=== PATIENT | male | born 1980 | race Caucasian/White ===

== ENCOUNTER 2017-05-14 21:29 | Emergency (ER) | payer BC ==
[2017-05-14 21:42] VITALS: BP 140/87; PULSE 80; TEMP 98.2; BMI 25.0
[2017-05-14] MEDS ORDERED: CYCLOBENZAPRINE HCL 10 MG TABLET (FP) ONE (22:31)
[2017-05-14] MEDS ORDERED: KETOROLAC TROMETHAMINE 60 MG/2 ML VIAL ONE (22:31)
--- NOTE | 2017-05-14 22:36 | PDOC ---
History of Present Illness - General Chief Complaint: Pain Stated Complaint: PAIN Time Seen by Provider: 05/14/17 21:47 History Source: Patient Exam Limitations: No Limitations - History of Present Illness Initial Comments: 05/14/17 22:33 here with complaints of left-sided neck pain and spasm. last week struck his head coming up some stairs incurring an axial load type injury and since that time has had spasm to his left neck with some radiation down arm since that time. has had problem with his neck and his lower back in the past, has disc herniations in his lumbar spine from work-related issues Occurred: reports: just prior to arrival, this evening Pain Location: reports: back, neck Modifying Factors: improves with: None Associated Symptoms (Fall): denies symptoms Past History - Travel Traveled outside of the country in the last 30 days: No Close contact w/someone who was outside of country & ill: No - Past Medical History Allergies/Adverse Reactions: Allergies Allergy/AdvReac Type Severity Reaction Status Date / Time No Known Allergies Allergy Verified 05/14/17 21:41 Home Medications: Ambulatory Orders Cyclobenzaprine HCl [Flexeril 10 mg] 10 mg PO BID PRN #14 tablet 05/14/17 Ibuprofen 600 mg PO Q6H PRN #30 tablet 05/14/17 GI Disorders: Yes (GERD) Psychiatric Problems: Yes (anxiety) - Immunization History Immunization Up to Date: Yes - Psycho/Social/Smoking Cessation Hx Anxiety: No Suicidal Ideation: No Smoking Status: Yes Smoking History: Current every day smoker Have you smoked in the past 12 months: Yes Number of Cigarettes Smoked Daily: 10 Cigars Per Day: 15 Information on smoking cessation initiated: No 'Breaking Loose' booklet given: 10/08/15 Hx Alcohol Use: No Drug/Substance Use Hx: No Substance Use Type: Alcohol Trauma Specific PMHX - Complaint Specific PMHX Back Injury: Yes Neck Injury: Yes Review of Systems - Review of Systems Able to Perform ROS?: Yes Is the patient limited Grenadian proficient: Yes Constitutional: Yes: Symptoms Reported, See HPI, Loss of Appetite, Malaise HEENTM: Yes: Symptoms Reported Respiratory: Yes: Symptoms reported Musculoskeletal: Yes: Symptoms Reported, See HPI, 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 No: Symptoms Reported, Bruising All Other Systems: Reviewed and Negative *Physical Exam - Vital Signs Last Vital Signs Temp Pulse Resp BP Pulse Ox 98.2 F 80 18 140/87 99 05/14/17 21:39 05/14/17 21:39 05/14/17 21:39 05/14/17 21:39 05/14/17 21:39 - Physical Exam General Appearance: Yes: Nourished, Appropriately Dressed, Apparent Distress, Mild Distress HEENT: positive: MARVA, Normal ENT Inspection, TMs Normal, Pharynx Normal Neck: positive: Supple (but tender with range of motion moving towards left. Reproducing spasm to left sternocleidomastoid muscles. Has no true C-spine tenderness, no rashes or lesions, neurovascular intact to hands.). negative: Tender, Lymphadenopathy (R), Lymphadenopathy (L), Tender midline Respiratory/Chest: positive: Lungs Clear, Normal Breath Sounds Musculoskeletal: positive: Muscle Spasm (upper paravertebral spinous muscles, and upper trapezius muscles. Has palpable spasm and reproduce tenderness with deep palpation at insertion to left SCM) Extremity: positive: Normal Capillary Refill, Normal Inspection. 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, Fully Oriented, Alert, Normal Mood/ Affect, Normal Response, Motor Strength 5/5 Progress Note - Progress Note Progress Note: Cervical spasm, will treat with NSAIDs and cyclobenzaprine and patient will follow-up with PMD for further evaluation and treatment *DC/Admit/Observation/Transfer Diagnosis at time of Disposition: Cervical myofascial strain Qualifiers: Encounter type: initial encounter Qualified Code(s): S16.1XXA - Strain of muscle, fascia and tendon at neck level, initial encounter - Discharge Dispostion Disposition: HOME Condition at time of disposition: Stable Admit: No - Prescriptions Prescriptions: Cyclobenzaprine HCl [Flexeril 10 mg] 10 mg PO BID PRN #14 tablet PRN Reason: spasm Ibuprofen 600 mg PO Q6H PRN #30 tablet PRN Reason: Pain - Referrals Referrals: Vishnu Garner MD [Primary Care Provider] - - Patient Instructions Printed Discharge Instructions: DI for Cervical Muscle Strain Additional Instructions: Rest, no heavy lifting or exercise until pain is resolved Hot soaks to neck and low back as often as possible/hot showers or Jacuzzis No massage or therapy until spasm is gone Continue ibuprofen 2-200 mg tablets every 6 hours for the next 3 days then as needed for pain and swelling Cyclobenzaprine 1-10mg every 8 hours as needed for spasm If not significant improvement within 24 hours with medication and rest regime, followup with private physician for change in medications and /or therapy. - Post Discharge Activity Work/School Note: Back to Work
[2017-05-14] MEDS ORDERED: CYCLOBENZAPRINE HCL 10 MG TABLET (FP) PO ONE (22:41)
[2017-05-14] MEDS ORDERED: KETOROLAC TROMETHAMINE 60 MG/2 ML VIAL IM ONE (22:41)
== END 2017-05-14 22:43 | disposition home or self-care (01) ==
LOC: JERFT 21:29
PROC: 3E0233Z Introduction of Anti-inflammatory into Muscle, Percutaneous Approach (ICD-10-PCS; principal; 2017-05-14)
DX: S16.1XXA Strain of muscle, fascia and tendon at neck level, initial encounter (principal); K21.9 Gastro-esophageal reflux disease without esophagitis; F41.9 Anxiety disorder, unspecified; F17.210 Nicotine dependence, cigarettes, uncomplicated; W22.8XXA Striking against or struck by other objects, initial encounter; Y93.89 Activity, other specified; Y92.9 Unspecified place or not applicable
CPT/HCPCS: 99281-25

== ENCOUNTER 2017-06-05 17:08 | Emergency (ER) | payer BC ==
[2017-06-05 17:15] VITALS: BP 131/83; PULSE 93; TEMP 97.4; BMI 25.0
[2017-06-05] MEDS ORDERED: LORazepam 1 MG TABLET PO ONE (17:51)
--- NOTE | 2017-06-05 17:51 | PDOC ---
History of Present Illness - General Chief Complaint: Shortness of Breath Stated Complaint: EXPOSURE TO CHEMICALS Time Seen by Provider: 06/05/17 17:29 - History of Present Illness Initial Comments: 06/05/17 18:12 Patient is a 36 year old male with no PMH who presents with SOB and chest tightness. Patient reports cleaning a pool with chemicals as well as a house with lots of dust and began to have a sensation of irritation in his throat with associated SOB. He was concerned, began to have chest tightness, and decided to present to the ED. He denies any cough, fevers, chills, chest pain, abdominal pain, or changes with bowel movements or urination. Past History - Past Medical History Allergies/Adverse Reactions: Allergies Allergy/AdvReac Type Severity Reaction Status Date / Time No Known Allergies Allergy Verified 06/05/17 17:10 Home Medications: Ambulatory Orders Cyclobenzaprine HCl [Flexeril 10 mg] 10 mg PO BID PRN #14 tablet 05/14/17 Ibuprofen 600 mg PO Q6H PRN #30 tablet 05/14/17 GI Disorders: Yes (GERD) Psychiatric Problems: Yes (anxiety) - Immunization History Immunization Up to Date: Yes - Psycho/Social/Smoking Cessation Hx Anxiety: No Suicidal Ideation: No Smoking Status: Yes Smoking History: Current every day smoker Have you smoked in the past 12 months: Yes Number of Cigarettes Smoked Daily: 10 Cigars Per Day: 15 Information on smoking cessation initiated: No 'Breaking Loose' booklet given: 10/08/15 Hx Alcohol Use: No Drug/Substance Use Hx: No Substance Use Type: Alcohol Review of Systems - Review of Systems Constitutional: No: Chills, Fever HEENTM: Yes: Throat Pain. No: Nose Pain, Nose Congestion, Throat Swelling, Mouth Pain, Difficulty Swallowing, Mouth Swelling Respiratory: Yes: Shortness of Breath. No: Cough, Productive cough, Hemoptysis Cardiac (ROS): Yes: Chest Tightness. No: Chest Pain, Palpitations ABD/GI: No: Constipated, Diarrhea, Nausea, Vomiting : No: Dysuria Integumentary: No: Rash Neurological: No: Headache, Numbness, Tingling, Weakness *Physical Exam - Vital Signs Last Vital Signs Temp Pulse Resp BP Pulse Ox 97.4 F L 93 H 19 131/83 99 06/05/17 17:10 06/05/17 17:10 06/05/17 17:10 06/05/17 17:10 06/05/17 17:10 - Physical Exam Comments: 06/05/17 18:21 General Appearance: Nourished. No Apparent Distress HEENT: Pharynx Normal with No Pharyngeal Erythema, Tonsillar Exudate, Tonsillar Erythema, Nasal Congestion, Sinus Tenderness Neck: Trachea midline, Normal Thyroid, Supple. No Lymphadenopathy (R) Respiratory/Chest: Lungs Clear, Normal Breath Sounds. No Crackles, Rales, Rhonchi, Wheezing Cardiovascular: Regular Rhythm, Regular Rate. No Murmur, Gallop/S3, Gallop/S4 Gastrointestinal/Abdominal: Normal Bowel Sounds, Soft. No Guarding, Rebound, Tenderness Extremity: Normal Capillary Refill Integumentary: Normal Color, Dry, Warm Neurologic: Fully Oriented, Alert, Normal Mood/Affect, Normal Response Medical Decision Making - Medical Decision Making 06/05/17 18:22 Patient is a 36 year old male who presents with SOB following cleaning dust and a pool with chemicals. Given the patient's benign physical exam and history, it is likely the patient's symptoms are due to some mild irritation to his pharynx as well as anxiety. We will obtain a chest radiograph to evaluate for any pathology and treat his anxiety and provide reassurance. *DC/Admit/Observation/Transfer Diagnosis at time of Disposition: SOB (shortness of breath) - Discharge Dispostion Disposition: HOME Condition at time of disposition: Improved Admit: No - Referrals Referrals: Vishnu Garner MD [Primary Care Provider] - - Patient Instructions Printed Discharge Instructions: DI for Anxiety -- Adult Additional Instructions: Please return to the ER if you experience concerning or worsening symptoms. Please call to follow up with your primary care provider to discuss your ER visit. - Attestations Physician Attestion: 06/05/17 18:26 I, Dr. Alex Huynh, attest that this document has been prepared under my direction and personally reviewed by me in its entirety. I further attest, that it accurately reflects all work, treatment, procedures and medical decision -making performed by me.
[2017-06-05] MEDS ORDERED: LORazepam 0.5 MG TABLET ONE (17:59)
--- NOTE | 2017-06-06 10:02 | PDOC ---
Attending Attestation - Resident Resident Name: AminaAlex - ED Attending Attestation I have performed the following: I have examined & evaluated the patient, The case was reviewed & discussed with the resident, I agree w/resident's findings & plan, Exceptions are as noted - HPI HPI: 06/06/17 09:58 36 yo male exposed to pool cleaning chemicals... difficulty breathing transiently - Physicial Exam PE: 06/06/17 10:01 NAD, No wheezing or dyspnea - Medical Decision Making 06/06/17 10:02 I agree with the residents assessment and plan
== END 2017-06-05 19:41 | disposition home or self-care (01) ==
LOC: JER 17:08
DX: Z77.098 Contact with and (suspected) exposure to other hazardous, chiefly nonmedicinal, chemicals (principal); R06.02 Shortness of breath; F41.9 Anxiety disorder, unspecified
CPT/HCPCS: 71020-TC; 99283-25

== ENCOUNTER 2017-06-23 13:45 | Emergency (ER) | payer OTHER, BC ==
[2017-06-23 14:06] VITALS: BP 143/91; PULSE 93; TEMP 98.1; BMI 25.0
[2017-06-23] MEDS ORDERED: KETOROLAC TROMETHAMINE 30 MG/1 ML VIAL IM ONE (14:42)
[2017-06-23] MEDS ORDERED: KETOROLAC TROMETHAMINE 60 MG/2 ML VIAL ONE (14:44)
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
== END 2017-06-23 16:43 | disposition home or self-care (01) ==
LOC: FER 13:45
PROC: 3E0233Z Introduction of Anti-inflammatory into Muscle, Percutaneous Approach (ICD-10-PCS; principal; 2017-06-23)
DX: R52 Pain, unspecified (principal); V23.4XXA Motorcycle driver injured in collision with car, pick-up truck or van in traffic accident, initial encounter; Y93.89 Activity, other specified; Y92.410 Unspecified street and highway as the place of occurrence of the external cause
CPT/HCPCS: 71020-TC; 72125-TC; 73562-TC-LT; 99283-25

== ENCOUNTER 2017-07-07 16:15 | Emergency (ER) | payer OTHER ==
[2017-07-07 16:20] VITALS: BP 140/93; PULSE 88; TEMP 98; BMI 25.0
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
== END 2017-07-07 19:35 | disposition home or self-care (01) ==
LOC: FER 16:15
DX: S13.4XXA Sprain of ligaments of cervical spine, initial encounter (principal); W11.XXXA Fall on and from ladder, initial encounter; Y93.89 Activity, other specified; Y92.219 Unspecified school as the place of occurrence of the external cause; Y99.0 Civilian activity done for income or pay
CPT/HCPCS: 70450-TC; 71101-TC-RT; 72125-TC; 99282-25

== ENCOUNTER 2018-02-25 12:33 | Emergency (ER) | payer SELFPAY ==
[2018-02-25 12:45] VITALS: BP 113/66; PULSE 81; TEMP 97.6; BMI 25.8
[2018-02-25] MEDS ORDERED: ONDANSETRON 4 MG/2 ML VIAL IVPUSH ONE (14:13)
[2018-02-25] MEDS ORDERED: SODIUM CHLORIDE 1,000 ML IV STA (14:13)
--- NOTE | 2018-02-25 14:19 | PDOC ---
History of Present Illness - General History Source: Patient Exam Limitations: No Limitations - History of Present Illness Initial Comments: 02/25/18 18:01 The patient is a 37 year old female with history of anxiety, hiatal hernia, who presents to the ED complaining of 1 day of epigastric pain with nausea and malaise. The patient reports he has been "paryting in [place]" for the past several days, drinking "a 12 pack every day" for the last 4 days. Today, while at work, he states he was not feeling well and came to the ED. On evaluation, his symptoms are resolved. No fever or chills. No vomiting or diarrhea. No chest pain or shortness of breath. <Riddhi Goel - Last Filed: 02/25/18 18:01> <Gabrielle Michele - Last Filed: 02/25/18 18:56> - General Chief Complaint: Pain Stated Complaint: HEADACHES, NAUSEA Time Seen by Provider: 02/25/18 13:27 Past History <Riddhi Goel - Last Filed: 02/25/18 18:01> - Past Medical History COPD: No GI Disorders: Yes (GERD) Psychiatric Problems: Yes (anxiety) - Immunization History Immunization Up to Date: Yes - Suicide/Smoking/Psychosocial Hx Smoking Status: Yes Smoking History: Current every day smoker Have you smoked in the past 12 months: No Number of Cigarettes Smoked Daily: 4 Cigars Per Day: 15 Information on smoking cessation initiated: Yes 'Breaking Loose' booklet given: 07/07/17 Hx Alcohol Use: No Drug/Substance Use Hx: No Substance Use Type: Alcohol <Gabrielle Michele - Last Filed: 02/25/18 18:56> - Past Medical History Allergies/Adverse Reactions: Allergies Allergy/AdvReac Type Severity Reaction Status Date / Time No Known Allergies Allergy Verified 02/25/18 12:45 Home Medications: Ambulatory Orders Clonazepam [Klonopin] 1 mg PO DAILY 02/25/18 Pantoprazole Sodium [Protonix] 40 mg PO DAILY 02/25/18 Review of Systems - Review of Systems Able to Perform ROS?: Yes Comments:: 02/25/18 18:01 GENERAL/CONSTITUTIONAL: +Malaise. No fever or chills. HEAD, EYES, EARS, NOSE AND THROAT: No change in vision. No ear pain or discharge. No sore throat. GASTROINTESTINAL: +Epigastric pain. +Nausea. No vomiting, diarrhea or constipation. GENITOURINARY: No dysuria, frequency, or change in urination. CARDIOVASCULAR: No chest pain or shortness of breath. RESPIRATORY: No cough, wheezing, or hemoptysis. MUSCULOSKELETAL: No joint or muscle swelling or pain. No neck or back pain. SKIN: No rash NEUROLOGIC: No headache, vertigo, loss of consciousness, or change in strength/ sensation. ENDOCRINE: No increased thirst. No abnormal weight change. HEMATOLOGIC/LYMPHATIC: No anemia, easy bleeding, or history of blood clots. ALLERGIC/IMMUNOLOGIC: No hives or skin allergy. <Riddhi Goel - Last Filed: 02/25/18 18:01> *Physical Exam - Vital Signs Last Vital Signs Temp Pulse Resp BP Pulse Ox 97.6 F 81 16 113/66 100 02/25/18 12:43 02/25/18 12:43 02/25/18 12:43 02/25/18 12:43 02/25/18 12:43 - Physical Exam Comments: 02/25/18 18:01 GENERAL: Awake, alert, and fully oriented, in no acute distress HEAD: No signs of trauma EYES: PERRLA, EOMI, sclera anicteric, conjunctiva clear ENT: Auricles normal inspection, hearing grossly normal, nares patent, oropharynx clear without exudates. Moist mucosa NECK: Normal ROM, supple, no lymphadenopathy, JVD, or masses LUNGS: Breath sounds equal, clear to auscultation bilaterally. No wheezes, and no crackles HEART: Regular rate and rhythm, normal S1 and S2, no murmurs, rubs or gallops ABDOMEN: +Mild epigastric tenderness to palpation. Soft, normoactive bowel sounds. No guarding, no rebound. No masses EXTREMITIES: Normal range of motion, no edema. No clubbing or cyanosis. No cords, erythema, or tenderness BACK: No midline spinal tenderness in cervical/thoracic/lumbar region NEUROLOGICAL: Normal speech, cranial nerves intact, negative pronator drift, 5/ 5 strength in all 4 extremities, normal sensation to light touch in all 4 extremities, normal cerebellar exam, normal gait, normal reflexes and tone SKIN: Warm, Dry, normal turgor, no rashes or lesions noted. <Riddhi Goel - Last Filed: 02/25/18 18:01> - Vital Signs Last Vital Signs Temp Pulse Resp BP Pulse Ox 97.6 F 81 16 113/66 100 02/25/18 12:43 02/25/18 12:43 02/25/18 12:43 02/25/18 12:43 02/25/18 12:43 <RyneGabrielle - Last Filed: 02/25/18 18:56> ED Treatment Course - LABORATORY CBC & Chemistry Diagram: 02/25/18 14:40 02/25/18 14:40 - ADDITIONAL ORDERS Additional order review: Laboratory Results 02/25/18 14:40 Sodium 138 Potassium 4.1 Chloride 105 Carbon Dioxide 26 Anion Gap 7 L BUN 19 H Creatinine 1.2 Creat Clearance w eGFR > 60 Random Glucose 111 H Calcium 8.4 L Magnesium 1.9 Total Bilirubin 0.2 D AST 68 H D ALT 100 H D Alkaline Phosphatase 95 Troponin I < 0.02 Total Protein 7.4 Albumin 3.9 Lipase 170 02/25/18 14:40 RBC 4.51 MCV 97.7 H MCHC 35.4 RDW 13.2 MPV 9.8 Neutrophils % 67.4 Lymphocytes % 23.9 Monocytes % 7.0 Eosinophils % 1.0 Basophils % 0.7 - Medications Given in the ED: ED Medications Discontinued Medications Generic Name Dose Route Start Last Admin Trade Name Freq PRN Reason Stop Dose Admin Famotidine/Sodium Chloride 20 mg in 50 mls @ 100 mls/hr 02/25/18 14:30 14:53 Pepcid 20 Mg Premixed Ivpb - IVPB 02/25/18 14:59 100 mls/hr ONCE ONE Administration Sodium Chloride 1,000 mls @ 1,000 mls/hr 02/25/18 14:13 02/25/18 14:52 Normal Saline - IV 02/25/18 15:12 1,000 mls/hr ASDIR STA Administration Ondansetron HCl 4 mg 02/25/18 14:13 02/25/18 14:53 Zofran Injection IVPUSH 02/25/18 14:14 4 mg ONCE ONE Administration <Riddhi Goel - Last Filed: 02/25/18 18:01> - LABORATORY CBC & Chemistry Diagram: 02/25/18 14:40 02/25/18 14:40 - RADIOLOGY Radiology Studies Ordered: Category Date Time Status CHEST X-RAY PORTABLE* [RAD] Stat Radiology 02/25/18 14:13 Ordered <Gabrielle Michele - Last Filed: 02/25/18 18:56> Medical Decision Making - Medical Decision Making 02/25/18 14:17 37-year-old male with a history of a hiatal hernia presents emergency department with nausea, malaise, and epigastric pain since this morning after drinking a 12 pack daily for the last 4 days. Vitals unremarkable. Exam with mild epigastric tenderness to palpation. Differential includes pancreatitis versus gastritis versus GERD. Plan: -labs -cxr -ekg -IVF -zofran/pepcid -reassess 02/25/18 18:53 Pt reports mild improvement in pain, not up to eating but tolerating water/ juice. Labs remarkable for mild AST/ALT elevations, likely 2/2 etoh. Rpt abd exam with no ttp. Offered pt more pain medication and further evaluation, but he prefers to go home as he knows this is likely due to excessive etoh. Will DC patient but gave him return precautions if his sxs do not improve or get worse. Pt expresses understanding. He will also f/u with Dr. Wing (his GI) within 1 week. I discussed the physical exam findings, ancillary test results and final diagnoses with the patient. I answered all of the patient's questions. The patient was satisfied with the care received and felt comfortable with the discharge plan and treatment plan. The patient will call their primary care physician within 24 hours to arrange follow-up and will return to the Emergency Department with any new, persistent or worsening symptoms. <Gabrielle Michele - Last Filed: 02/25/18 18:56> *DC/Admit/Observation/Transfer - Attestations Scribe Attestion: 02/25/18 18:02 Documentation prepared by Riddhi Goel, acting as medical reviewer for Gabrielle Michele MD. <Riddhi Goel - Last Filed: 02/25/18 18:01> - Discharge Dispostion Admit: No - Attestations Physician Attestion: 02/25/18 18:56 I, Dr. Gabrielle Michele MD, attest that this document has been prepared under my direction and personally reviewed by me in its entirety. I further attest, that it accurately reflects all work, treatment, procedures and medical decision -making performed by me. <Gabrielle Michele - Last Filed: 02/25/18 18:56> Diagnosis at time of Disposition: Abdominal pain - Discharge Dispostion Disposition: HOME Condition at time of disposition: Stable - Referrals Referrals: Vishnu Garner MD [Primary Care Provider] - - Patient Instructions Printed Discharge Instructions: DI for Abdominal Pain-Adult Additional Instructions: Follow up with Dr. Wing and your primary doctor within 1 week. Take zofran as needed for nausea. Continue to take your home pantoprazole. Stay hydrated and drink plenty of fluids. Return to the emergency department if you have any new, worsening, or concerning symptoms.
[2018-02-25] MEDS ORDERED: FAMOTIDINE 20 MG/50 ML IVPB 20 MG/50 ML MG IVPB ONE ×2 (14:30→14:40)
[2018-02-25] MEDS ORDERED: ONDANSETRON 4 MG/2 ML VIAL ONE (14:40)
[2018-02-25 15:17] LABS: ALBUMIN 3.9 g/dl (3.4-5.0); ANION GAP 7 (8-16); BILIRUBIN,TOTAL 0.2 mg/dL (0.2-1.0); BLOOD UREA NITROGEN 19 mg/dL (7-18); CALCIUM 8.4 mg/dL (8.5-10.1); CHLORIDE 105 mmol/L (98-107); CO2 26 mmol/L (21-32); CREATININE 1.2 mg/dL (0.7-1.3); GLUCOSE,RANDOM 111 mg/dL (74-106); LIPASE 170 U/L (73-393); SGPT/ALT 100 U/L (12-78); SODIUM 138 mmol/L (136-145); TOT PROT 7.4 g/dl (6.4-8.2)
[2018-02-25 15:19] LABS: ALK PHOS 95 U/L (45-117)
[2018-02-25 15:22] LABS: MAGNESIUM 1.9 mg/dL (1.8-2.4); POTASSIUM 4.1 mmol/L (3.5-5.1); SGOT/AST 68 U/L (15-37)
[2018-02-25 16:47] LABS: BASO % 0.7 % (0-2.0); HEMATOCRIT 44.1 % (35.4-49); HEMOGLOBIN 15.6 GM/dL (11.7-16.9); LYMPH % 23.9 % (8-40); MCH 34.6 pg (25.7-33.7); MCHC 35.4 g/dl (32.0-35.9); MEAN CELL VOLUME 97.7 fl (80-96); MEAN PLT VOLUME 9.8 fl (7.5-11.1); NEUT % 67.4 % (42.8-82.8); PLATELET COUNT 185 K/MM3 (134-434); RBC 4.51 M/mm3 (4.00-5.60); RDW 13.2 % (11.9-15.9); WHITE BLOOD COUNT 7.4 K/mm3 (4.0-10.0)
== END 2018-02-25 19:03 | disposition home or self-care (01) ==
LOC: JER 12:33
PROC: 3E033GC Introduction of Other Therapeutic Substance into Peripheral Vein, Percutaneous Approach (ICD-10-PCS; principal; 2018-02-25)
PROC: 3E0337Z Introduction of Electrolytic and Water Balance Substance into Peripheral Vein, Percutaneous Approach (ICD-10-PCS; 2018-02-25)
DX: R10.13 Epigastric pain (principal)
CPT/HCPCS: 36415; 71045-TC-FY; 80053; 83690; 83735; 84484; 85025; 99282-25; J7030

== ENCOUNTER 2018-03-02 19:45 | Emergency (ER) | payer BC ==
[2018-03-02 19:54] VITALS: BP 147/102; PULSE 80; TEMP 98; BMI 27.7
[2018-03-02] MEDS ORDERED: PANTOPRAZOLE SODIUM 40 MG VIAL IVPUSH ONE (21:01)
[2018-03-02] MEDS ORDERED: SODIUM CHLORIDE 1,000 ML IV STA (21:01)
--- NOTE | 2018-03-02 21:03 | PDOC ---
History of Present Illness - General History Source: Patient Exam Limitations: No Limitations - History of Present Illness Initial Comments: 03/02/18 22:28 The patient is a 37 year old male with a significant PMH of GERD and anxiety who presents to the emergency department with epigastric pain and diarrhea for 3 days. The patient reports that he was recently incarcerated and released 3 days ago when he began to experience his epigastric pain and diarrhea. The patient reports that he has had about 5 episodes a day of constant runny diarrhea since friday. He reports that he has been hydrating, eating and drinking normally. The patient reports being noncompliant with his protonix medication because he thought it would interact with medications given to him while incarcerated. The patient denies any chest pain or shortness of breath. He denies any fever, chills, nausea, vomiting or constipation. The patient reports some associated dizziness. The patient denies any other complaints. Social history: drinks alcohol. <Eliu Sanderson - Last Filed: 03/02/18 22:28> <Temitope Maldonado - Last Filed: 03/05/18 00:18> - General Chief Complaint: Pain, Acute Stated Complaint: GENERALIZED BODY ACHES, FEVER Time Seen by Provider: 03/02/18 19:49 Past History <Eliu Sanderson - Last Filed: 03/02/18 22:28> - Past Medical History COPD: No GI Disorders: Yes (GERD) Psychiatric Problems: Yes (anxiety) - Immunization History Immunization Up to Date: Yes - Suicide/Smoking/Psychosocial Hx Smoking Status: Yes Smoking History: Current every day smoker Have you smoked in the past 12 months: Yes Number of Cigarettes Smoked Daily: 4 Cigars Per Day: 15 Information on smoking cessation initiated: Yes 'Breaking Loose' booklet given: 07/07/17 Hx Alcohol Use: Yes (5-6 BEERS DAILY) Drug/Substance Use Hx: No Substance Use Type: Alcohol <Temitope Maldonado - Last Filed: 03/05/18 00:18> - Past Medical History Allergies/Adverse Reactions: Allergies Allergy/AdvReac Type Severity Reaction Status Date / Time No Known Allergies Allergy Verified 03/02/18 19:47 Home Medications: Ambulatory Orders Clonazepam [Klonopin] 1 mg PO DAILY 02/25/18 Pantoprazole Sodium [Protonix] 40 mg PO DAILY 02/25/18 Pantoprazole Sodium [Protonix -] 40 mg PO DAILY #20 tablet.ec 03/02/18 Review of Systems - Review of Systems Able to Perform ROS?: Yes Comments:: 03/02/18 22:29 GENERAL/CONSTITUTIONAL: No fever or chills. No weakness. HEAD, EYES, EARS, NOSE AND THROAT: No change in vision. No ear pain or discharge. No sore throat. CARDIOVASCULAR: No chest pain or shortness of breath. RESPIRATORY: No cough, wheezing, or hemoptysis. GASTROINTESTINAL: (+)diarrhea, epigastric pain. No nausea, vomiting, or constipation. GENITOURINARY: No dysuria, frequency, or change in urination. MUSCULOSKELETAL: No joint or muscle swelling or pain. No neck or back pain. SKIN: No rash NEUROLOGIC: No headache, vertigo, loss of consciousness, or change in strength/ sensation. ENDOCRINE: No increased thirst. No abnormal weight change. HEMATOLOGIC/LYMPHATIC: No anemia, easy bleeding, or history of blood clots. ALLERGIC/IMMUNOLOGIC: No hives or skin allergy. <Eliu Sanderson - Last Filed: 03/02/18 22:28> *Physical Exam - Vital Signs Last Vital Signs Temp Pulse Resp BP Pulse Ox 98 F 80 16 147/102 100 03/02/18 19:49 03/02/18 19:49 03/02/18 19:49 03/02/18 19:49 03/02/18 19:49 - Physical Exam Comments: 03/02/18 22:29 GENERAL: Awake, alert, and fully oriented, in no acute distress HEAD: No signs of trauma EYES: PERRLA, EOMI, sclera anicteric, conjunctiva clear ENT: (+)dry mucous membranes. Auricles normal inspection, hearing grossly normal , nares patent, oropharynx clear without exudates. NECK: Normal ROM, supple, no lymphadenopathy, JVD, or masses LUNGS: Breath sounds equal, clear to auscultation bilaterally. No wheezes, and no crackles HEART: Regular rate and rhythm, normal S1 and S2, no murmurs, rubs or gallops ABDOMEN: (+)epigastric tenderness. Belly Soft, normoactive bowel sounds. No guarding, no rebound. No masses EXTREMITIES: Normal range of motion, no edema. No clubbing or cyanosis. No cords, erythema, or tenderness NEUROLOGICAL: Cranial nerves II through XII grossly intact. Normal speech, normal gait SKIN: Warm, Dry, normal turgor, no rashes or lesions noted. <Eliu Sanderson - Last Filed: 03/02/18 22:28> - Vital Signs Last Vital Signs Temp Pulse Resp BP Pulse Ox 98 F 80 16 147/102 100 03/02/18 19:49 03/02/18 19:49 03/02/18 19:49 03/02/18 19:49 03/02/18 19:49 <Temitope Maldonado - Last Filed: 03/05/18 00:18> ED Treatment Course - LABORATORY CBC & Chemistry Diagram: 03/02/18 21:05 03/02/18 21:05 - ADDITIONAL ORDERS Additional order review: Laboratory Results 03/02/18 21:05 Sodium 137 Potassium 3.8 Chloride 101 Carbon Dioxide 28 Anion Gap 8 BUN 20 H D Creatinine 1.1 Creat Clearance w eGFR > 60 Random Glucose 98 Calcium 8.8 Total Bilirubin 0.7 D AST 60 H D ALT 66 H D Alkaline Phosphatase 77 Total Protein 7.1 Albumin 4.1 Lipase 294 03/02/18 21:05 RBC 4.34 MCV 96.3 H MCHC 35.9 RDW 12.1 MPV 9.0 Neutrophils % 65.6 Lymphocytes % 25.0 D Monocytes % 7.1 Eosinophils % 1.7 Basophils % 0.6 - Medications Given in the ED: ED Medications Discontinued Medications Generic Name Dose Route Start Last Admin Trade Name Freq PRN Reason Stop Dose Admin Sodium Chloride 1,000 mls @ 1,000 mls/hr 03/02/18 21:01 03/02/18 21:11 Normal Saline - IV 03/02/18 22:00 1,000 mls/hr ASDIR STA Administration Pantoprazole Sodium 40 mg 03/02/18 21:01 03/02/18 21:17 Protonix Iv IVPUSH 03/02/18 21:02 40 mg ONCE ONE Administration <Eliu Sanderson - Last Filed: 03/02/18 22:28> - LABORATORY CBC & Chemistry Diagram: 03/02/18 21:05 03/02/18 21:05 <Temitope Maldonado - Last Filed: 03/05/18 00:18> Progress Note - Progress Note Progress Note: Documentation has been prepared under my direction and personally reviewed by me in its entirety. I attest that this documented accurately reflects all work, treatment, procedures and medical decision making performed by me. <Temitope Maldonado - Last Filed: 03/05/18 00:18> Medical Decision Making - Medical Decision Making As noted above, this 37-year-old man with a history of GERD, recently incarcerated presents with a few day history of diarrhea and epigastric pain. Patient states that he had not taken his Protonix during the time that he was incarcerated. Otherwise, he is no significant symptoms. Exam as noted. Patient given a liter normal saline/Protonix 40 mg IV. Laboratory evaluation is essentially normal without elevation of lipase or LFTs. He has minimal elevation of transaminases. Patient feels significantly better after IV hydration and Protonix IV. Patient will be discharged with instructions to continue his Protonix by mouth daily as previously prescribed. He should take Imodium after every loose bowel to 4 times a day. He should return to the ER if he has severe pain or persistent vomiting/fever Follow-up with his general doctor should be within the next 2-3 days <Temitope Maldonado - Last Filed: 03/05/18 00:18> *DC/Admit/Observation/Transfer <Eliu Sanderson - Last Filed: 03/02/18 22:28> <Temitope Maldonado - Last Filed: 03/05/18 00:18> Diagnosis at time of Disposition: Gastroenteritis and colitis, viral GERD (gastroesophageal reflux disease) Qualifiers: Esophagitis presence: with esophagitis Qualified Code(s): K21.0 - Gastro- esophageal reflux disease with esophagitis - Discharge Dispostion Disposition: HOME Condition at time of disposition: Stable - Prescriptions Prescriptions: Pantoprazole Sodium [Protonix -] 40 mg PO DAILY #20 tablet.ec - Patient Instructions Printed Discharge Instructions: DI for Gastroesophageal Reflux Disease (GERD), Smoking Cessation Additional Instructions: continue Protonix as prescribed Continue hydration as tolerated Return to ER if you have vomiting or worsening abdominal pain Follow-up with your general doctor within the next 2-3 days
[2018-03-02] MEDS ORDERED: PANTOPRAZOLE SODIUM 40 MG VIAL ONE (21:12)
[2018-03-02 21:25] LABS: BASO % 0.6 % (0-2.0); EOS % 1.7 % (0-4.5); MCH 34.6 pg (25.7-33.7); MCHC 35.9 g/dl (32.0-35.9); MEAN CELL VOLUME 96.3 fl (80-96); MONO % 7.1 % (3.8-10.2); NEUT % 65.6 % (42.8-82.8); PLATELET COUNT 146 K/MM3 (134-434); RBC 4.34 M/mm3 (4.00-5.60); RDW 12.1 % (11.9-15.9); WHITE BLOOD COUNT 6.5 K/mm3 (4.0-10.8)
[2018-03-02 21:36] LABS: ALBUMIN 4.1 g/dl (3.5-5.0); ALK PHOS 77 U/L (32-92); ANION GAP 8 (8-16); BILIRUBIN,TOTAL 0.7 mg/dl (0.2-1.0); BLOOD UREA NITROGEN 20 mg/dl (7-18); CALCIUM 8.8 mg/dl (8.4-10.2); CHLORIDE 101 mmol/L (98-107); CO2 28 mmol/L (22-28); CREATININE 1.1 mg/dl (0.6-1.3); GLUCOSE,RANDOM 98 mg/dl (74-106); POTASSIUM 3.8 mmol/L (3.5-5.1); SGOT/AST 60 U/L (10-42); SGPT/ALT 66 U/L (10-40); SODIUM 137 mmol/L (136-145); TOT PROT 7.1 g/dl (6.4-8.3)
[2018-03-02 22:02] LABS: HEMATOCRIT 39.8 % (35.4-49); HEMOGLOBIN 13.8 GM/dl (11.7-16.9)
[2018-03-02 22:26] LABS: LIPASE 294 U/L (73-393)
== END 2018-03-02 22:41 | disposition home or self-care (01) ==
LOC: FER 19:45
PROC: 3E0337Z Introduction of Electrolytic and Water Balance Substance into Peripheral Vein, Percutaneous Approach (ICD-10-PCS; principal; 2018-03-02)
PROC: 3E033GC Introduction of Other Therapeutic Substance into Peripheral Vein, Percutaneous Approach (ICD-10-PCS; 2018-03-02)
DX: K52.9 Noninfective gastroenteritis and colitis, unspecified (principal); K52.89 Other specified noninfective gastroenteritis and colitis; B97.89 Other viral agents as the cause of diseases classified elsewhere
CPT/HCPCS: 36415; 80053; 83690; 85025; 99281-25; J7030

== ENCOUNTER 2018-03-16 02:54 | Emergency (ER) | payer BC ==
--- NOTE | 2018-03-16 03:31 | PDOC ---
History of Present Illness - General Chief Complaint: Pain Stated Complaint: STOMACH PAIN Time Seen by Provider: 03/16/18 03:21 - History of Present Illness Initial Comments: 37 year old male with history of anxiety and GERD presenting with sudden onset epigastric burning tonight a few hours after laying down. States he ate some food at 20:00 and drank one alcoholic drink at 21:00 then went to bed and woke up at with sudden onset epigastric burning. He hasn't taken his pantoprazole for three days because "just because". Denies fevers, chills, vomiting, chest pain, SOB, headache, cough, or other sick symptoms. 03/16/18 03:45 Past History - Past Medical History Allergies/Adverse Reactions: Allergies Allergy/AdvReac Type Severity Reaction Status Date / Time No Known Allergies Allergy Verified 03/16/18 03:19 Home Medications: Ambulatory Orders Clonazepam [Klonopin] 1 mg PO DAILY 02/25/18 Pantoprazole Sodium [Protonix] 40 mg PO DAILY 02/25/18 Pantoprazole Sodium [Protonix -] 40 mg PO DAILY #20 tablet.ec 03/02/18 Sucralfate Oral Suspension [Carafate Oral Suspension -] 1 gm PO BID PRN #10 ml 03/16/18 COPD: No GI Disorders: Yes (GERD) Psychiatric Problems: Yes (anxiety) - Immunization History Immunization Up to Date: Yes - Suicide/Smoking/Psychosocial Hx Smoking Status: Yes Smoking History: Never smoked Have you smoked in the past 12 months: No Number of Cigarettes Smoked Daily: 4 Cigars Per Day: 15 Information on smoking cessation initiated: No 'Breaking Loose' booklet given: 07/07/17 Hx Alcohol Use: No Drug/Substance Use Hx: No Substance Use Type: Alcohol Review of Systems - Review of Systems Constitutional: No: Chills, Diaphoresis, Fever, Loss of Appetite HEENTM: No: Eye Pain, Blurred Vision, Nose Pain, Nose Congestion Respiratory: No: Shortness of Breath, Wheezing Cardiac (ROS): No: Edema, Irregular Heart Rate ABD/GI: Yes: Indigestion. No: Diarrhea, Nausea, Poor Appetite, Vomiting : No: Dysuria, Discharge, Frequency Integumentary: No: Lesions, Lumps, Pruritus, Rash Neurological: No: Headache, Numbness, Paresthesia, Weakness Psychiatric: Yes: Anxiety *Physical Exam - Vital Signs Last Vital Signs Temp Pulse Resp BP Pulse Ox 98.1 F 87 20 149/85 99 03/16/18 03:17 03/16/18 03:17 03/16/18 03:17 03/16/18 03:17 03/16/18 03:17 - Physical Exam General Appearance: Yes: Nourished, Appropriately Dressed. No: Apparent Distress HEENT: positive: EOMI, MARVA, Normal ENT Inspection, Normal Voice Neck: positive: Trachea midline, Normal Thyroid, Supple. negative: Tender, Rigid Respiratory/Chest: positive: Lungs Clear, Normal Breath Sounds. negative: Chest Tender, Respiratory Distress, Accessory Muscle Use, Labored Respiration Cardiovascular: positive: Regular Rhythm, Regular Rate Gastrointestinal/Abdominal: positive: Normal Bowel Sounds, Flat, Soft. negative : Tender Musculoskeletal: positive: Normal Inspection Extremity: positive: Normal Capillary Refill. negative: Normal Inspection, Tender Integumentary: positive: Normal Color, Dry, Warm Neurologic: positive: Fully Oriented, Alert, Normal Mood/Affect, Normal Response , Motor Strength 03/14 ED Treatment Course - LABORATORY CBC & Chemistry Diagram: 03/16/18 04:00 03/16/18 04:00 Medical Decision Making - Medical Decision Making 37 year old male with GERD presenting with epigastric pain in the setting of medication non-compliance. Pain improved here with Pepcid and suscralfate. Lipase slightly elevated but patient does not have pain with food ingestion. Will discharge home with protonix use insttructions, sucralfate prescription, and follow up at his GI appointment this week. 03/16/18 05:04 *DC/Admit/Observation/Transfer Diagnosis at time of Disposition: Epigastric pain - Discharge Dispostion Disposition: HOME Condition at time of disposition: Improved Admit: No - Prescriptions Prescriptions: Sucralfate Oral Suspension [Carafate Oral Suspension -] 1 gm PO BID PRN #10 ml PRN Reason: abdominal pain - Referrals Referrals: Dante Copeland DO [Staff Physician] - - Patient Instructions Printed Discharge Instructions: DI for Acute Abdomen Additional Instructions: Please stop drinking alcohol. Your labs were mostly normal but show that you are using alcohol too much. Please see your GI doctor this week for your endoscopy and to discuss your lab results here. Please return to the ED if you have new or worsening symptoms. - Post Discharge Activity
[2018-03-16 03:37] VITALS: BP 149/85; PULSE 87; TEMP 98.1; BMI 25.8
[2018-03-16] MEDS ORDERED: SUCRALFATE 1 GM TABLET (FP) PO STA (03:43)
[2018-03-16] MEDS ORDERED: RANITIDINE HCL 150 MG TABLET (FP) PO ONE (03:43)
[2018-03-16] MEDS ORDERED: MAG HYDROX/AL HYDROX/SIMETH 30 ML UNIT-DOSE CUP PO ONE (03:43)
[2018-03-16] MEDS ORDERED: PANTOPRAZOLE SODIUM 40 MG VIAL IVPUSH ONE (03:48)
[2018-03-16 04:06] LABS: BASO % 0.8 % (0-2.0); EOS % 3.8 % (0-4.5); HEMATOCRIT 41.2 % (35.4-49); HEMOGLOBIN 14.8 GM/dL (11.7-16.9); LYMPH % 26.8 % (8-40); MCH 35.3 pg (25.7-33.7); MCHC 35.9 g/dl (32.0-35.9); MEAN CELL VOLUME 98.5 fl (80-96); MEAN PLT VOLUME 9.5 fl (7.5-11.1); MONO % 8.9 % (3.8-10.2); NEUT % 59.7 % (42.8-82.8); PLATELET COUNT 175 K/MM3 (134-434); RBC 4.18 M/mm3 (4.00-5.60); RDW 13.7 % (11.9-15.9); WHITE BLOOD COUNT 6.1 K/mm3 (4.0-10.0)
[2018-03-16] MEDS ORDERED: MAG HYDROX/AL HYDROX/SIMETH 30 ML UNIT-DOSE CUP ONE (04:08)
[2018-03-16] MEDS ORDERED: PANTOPRAZOLE SODIUM 40 MG/100 ML BAG IVPB ONE (04:08)
[2018-03-16] MEDS ORDERED: SUCRALFATE 1 GM TABLET (FP) ONE (04:08)
[2018-03-16 04:36] LABS: ALBUMIN 3.9 g/dl (3.4-5.0); ANION GAP 12 (8-16); BILIRUBIN,TOTAL 0.3 mg/dL (0.2-1.0); BLOOD UREA NITROGEN 13 mg/dL (7-18); CHLORIDE 106 mmol/L (98-107); CO2 25 mmol/L (21-32); GLUCOSE,RANDOM 96 mg/dL (74-106); POTASSIUM 3.5 mmol/L (3.5-5.1); SGOT/AST 98 U/L (15-37); SGPT/ALT 137 U/L (12-78); SODIUM 143 mmol/L (136-145); TOT PROT 7.4 g/dl (6.4-8.2)
[2018-03-16 04:38] LABS: ALK PHOS 84 U/L (45-117)
--- NOTE | 2018-03-16 04:42 | PDOC ---
Attending Attestation - Resident Resident Name: Douglas Cruz - ED Attending Attestation I have performed the following: I have examined & evaluated the patient, The case was reviewed & discussed with the resident, I agree w/resident's findings & plan - HPI HPI: 03/16/18 04:41 Pt comes with epigastric pain - Physicial Exam PE: 03/16/18 04:41 Agree with resident exam - Medical Decision Making 03/16/18 04:42 Lipase is elevated. LFTs also elevated and higher than usual. 03/16/18 06:30 Pt used to be an alcoholic and now drinks occasionally. He was advised to stop drinking and he doesn't want to go to detox. Pt will follow with GI.
--- NOTE | 2018-03-16 10:40 | EKG ---
Test Reason : Blood Pressure : / mmHG Vent. Rate : 067 BPM Atrial Rate : 067 BPM P-R Int : 176 ms QRS Dur : 112 ms QT Int : 394 ms P-R-T Axes : 058 078 047 degrees QTc Int : 416 ms NORMAL SINUS RHYTHM NONSPECIFIC ST ABNORMALITY ABNORMAL ECG WHEN COMPARED WITH ECG OF 25-JAN-2016 04:10, NO SIGNIFICANT CHANGE WAS FOUND Confirmed by MONET RIDLEY MD ([id number]) on 03/16/2018 10:40:18 AM Referred By: Confirmed By:MONET RIDLEY MD
== END 2018-03-16 05:20 | disposition home or self-care (01) ==
LOC: JER 02:54
PROC: 3E033GC Introduction of Other Therapeutic Substance into Peripheral Vein, Percutaneous Approach (ICD-10-PCS; principal; 2018-03-16)
DX: K21.9 Gastro-esophageal reflux disease without esophagitis (principal); Z91.14 Patient's other noncompliance with medication regimen; F41.9 Anxiety disorder, unspecified
CPT/HCPCS: 36415; 80053; 82550; 82553; 83690; 84484; 85025; 93005; 93010; 99281-25

== ENCOUNTER → 2018-03-31 | Day surgery (SDC) | payer BC ==
[2018-03-30 14:44] VITALS: BMI 25.0
[2018-03-31 11:30] VITALS: TEMP 97.8
[2018-03-31 12:19] VITALS: BP 118/79; PULSE 64
--- NOTE | 2018-04-01 14:09 | PATH ---
Surgical Pathology Report Patient Name: ALEKSEY DOUGLAS [facility]. Rec. #: [id number] /Age/Gender: 1980 (Age: 37) / M Account: [id number] Location: [facility]-ENDOSCOPY Taken: 03/31/2018 Received: 03/31/2018 Reported: 04/01/2018 Physicians: Gio Copeland D.O. Specimen(s) Received A: BX DUODENUM B: BX ANTRUM EROSION C: BX ANTRUM BODY D: BX DISTAL ESOPHAGUS Clinical History GERD Postoperative diagnosis: Hiatal hernia, esophagitis, gastritis, duodenitis Final Diagnosis A. DUODENUM, BIOPSY: DUODENAL MUCOSA WITH MILD CHRONIC DUODENITIS. B. ANTRUM EROSION, BIOPSY: GASTRIC MUCOSA WITH ACTIVE CHRONIC GASTRITIS AND REGENERATIVE CHANGE. IMMUNOSTAIN IS NEGATIVE FOR H. PYLORI ORGANISMS. C. ANTRUM/BODY, BIOPSY: GASTRIC MUCOSA WITH NO DIAGNOSTIC ABNORMALITIES. IMMUNOSTAIN IS NEGATIVE FOR H. PYLORI ORGANISMS. D. ESOPHAGUS, DISTAL, BIOPSY: ESOPHAGEAL (SQUAMOUS) MUCOSA SHOWING FEATURES SUGGESTIVE OF REFLUX ESOPHAGITIS. Electronically Signed Eliazar Eid M.D. Gross Description A. Received in formalin, labeled "biopsy second portion of duodenum" are 3 blair, irregular portions of soft tissue averaging 0.2 cm. in greatest dimension. The specimens are submitted in toto in one cassette. B. Received in formalin, labeled "biopsy antral erosion" are 3 blair, irregular portions of soft tissue ranging from 0.2-0.3 cm. in greatest dimension. The specimens are submitted in toto in one cassette. C. Received in formalin, labeled "biopsy antrum/body" are 3 blair, irregular portions of soft tissue ranging from 0.2-0.5 cm. in greatest dimension. The specimens are submitted in toto in one cassette. D. Received in formalin, labeled "biopsy distal esophagus" are 3 blair, irregular portions of soft tissue ranging from 0.3-0.4 cm. in greatest dimension. The specimens are submitted in toto in one cassette. 03/31/201803/31/2018
== END | disposition home or self-care (01) ==
LOC: JASU-ENDO 10:18
PROVIDERS: ATTEND Internal Medicine Gastroenterology
PROC: 0DB68ZX Excision of Stomach, Via Natural or Artificial Opening Endoscopic, Diagnostic (ICD-10-PCS; 2018-03-31)
PROC: 0DB38ZX Excision of Lower Esophagus, Via Natural or Artificial Opening Endoscopic, Diagnostic (ICD-10-PCS; 2018-03-31)
PROC: 0DB98ZX Excision of Duodenum, Via Natural or Artificial Opening Endoscopic, Diagnostic (ICD-10-PCS; principal; 2018-03-31 11:15)
DX: Z87.19 Personal history of other diseases of the digestive system (principal); K29.80 Duodenitis without bleeding; K29.50 Unspecified chronic gastritis without bleeding; K44.9 Diaphragmatic hernia without obstruction or gangrene
CPT/HCPCS: 36415; 81256; 82728; 82941; 88305-TC; 88342-TC

== ENCOUNTER 2018-09-28 16:56 | Emergency (ER) | payer BC ==
--- NOTE | 2018-09-28 17:30 | PDOC ---
History of Present Illness - General History Source: Patient Exam Limitations: No Limitations - History of Present Illness Initial Comments: 09/28/18 18:33 The patient is a 37 year old male, with a significant past medical history of pancreatic pseudocyst and alcoholic pancreatitis (former alcoholic), who presents to the emergency department with, right sided rib and thoracic back pain. As per patient, he was on a step stool working on his house when he fell injuring his right lower ribs and back. Patient notes his pain to worsen when sitting up. He denies any recent chest pain or shortness of breath. He denies any recent fevers, chills, headache or dizziness. He denies any recent nausea, vomit, diarrhea or constipation. He denies any recent dysuria, frequency, urgency or hematuria. Allergies: NKDA Social History: Former alcoholic. <Deep Cohen - Last Filed: 09/28/18 18:33> <Keysha Stroud - Last Filed: 09/28/18 18:58> - General Chief Complaint: Injury Stated Complaint: FELL ON LEFT SIDE Time Seen by Provider: 09/28/18 17:30 Past History <Deep Cohen - Last Filed: 09/28/18 18:33> - Past Medical History Anemia: No Asthma: No Cancer: No Cardiac Disorders: No CVA: No COPD: No CHF: No Dementia: No Diabetes: No GI Disorders: Yes (GERD;HIATAL HERNIA) Disorders: No HTN: No Hypercholesterolemia: No Liver Disease: Yes (ALCOHOLIC FATTY LIVER) Psychiatric Problems: Yes (anxiety) Seizures: No Thyroid Disease: No - Surgical History Orthopedic Surgery: Yes (RIGHT ELBOW SURGERY) - Immunization History Immunization Up to Date: Yes - Suicide/Smoking/Psychosocial Hx Smoking Status: Yes Smoking History: Current some day smoker Have you smoked in the past 12 months: Yes Number of Cigarettes Smoked Daily: 15 Cigars Per Day: 15 'Breaking Loose' booklet given: 05/11/18 Hx Alcohol Use: Yes Drug/Substance Use Hx: No Substance Use Type: Alcohol Hx Substance Use Treatment: No <Keysha Stroud - Last Filed: 09/28/18 18:58> - Past Medical History Allergies/Adverse Reactions: Allergies Allergy/AdvReac Type Severity Reaction Status Date / Time No Known Allergies Allergy Verified 09/28/18 16:57 Home Medications: Ambulatory Orders Ibuprofen [Motrin -] 600 mg PO TID PRN #15 tablet 09/28/18 Review of Systems - Review of Systems Able to Perform ROS?: Yes Comments:: 09/28/18 18:34 GENERAL/CONSTITUTIONAL: No fever or chills. No weakness. HEAD, EYES, EARS, NOSE AND THROAT: No change in vision. No ear pain or discharge. No sore throat. GASTROINTESTINAL: No nausea, vomiting, diarrhea or constipation. GENITOURINARY: No dysuria, frequency, or change in urination. CARDIOVASCULAR: No chest pain or shortness of breath. RESPIRATORY: No cough, wheezing, or hemoptysis. +MUSCULOSKELETAL: Right rib pain and thoracic back pain. No neck pain. SKIN: No rash NEUROLOGIC: No headache, vertigo, loss of consciousness, or change in strength/ sensation. ENDOCRINE: No increased thirst. No abnormal weight change. HEMATOLOGIC/LYMPHATIC: No anemia, easy bleeding, or history of blood clots. ALLERGIC/IMMUNOLOGIC: No hives or skin allergy. All Other Systems: Reviewed and Negative <Deep Cohen - Last Filed: 09/28/18 18:33> *Physical Exam - Vital Signs Last Vital Signs Temp Pulse Resp BP Pulse Ox 98.1 F 75 20 129/79 100 09/28/18 16:56 09/28/18 16:56 09/28/18 16:56 09/28/18 16:56 09/28/18 16:56 - Physical Exam Comments: 09/28/18 18:34 Constitutional: Awake, alert, oriented. No acute distress. Head: Normocephalic. Atraumatic Eyes: PERRL. EOMI. Conjunctivae are not pale. ENT: Mucous membranes are moist and intact. Posterior pharynx without exudates or erythema. Uvula midline. Neck: Supple. Full ROM. No lymphadenopathy. Cardiovascular: Regular rate. Regular rhythm. S1, S2 regular. Distal pulses are 2+ and symmetric. Pulmonary/Chest: No evidence of respiratory distress. Clear to auscultation bilaterally No wheezing, rales or rhonchi. +Abdominal: Right lower rib pain without step off or deformities. Soft and non- distended. No rebound, guarding or rigidity. No organomegaly. No palpable masses. Good bowel sounds. +Back: Mid thoracic back tenderness. No midline tenderness. No CVA tenderness. Musculoskeletal: No edema. No cyanosis. No clubbing. Full range of motion in all extremities. No calf tenderness. Radial/pedal pulses are intact and 2+ bilaterally Skin: Skin is warm and dry. No petechiae. No purpura. Neurological: Alert and oriented to person, place, and time. Cranial nerves II -XII are grossly intact. Normal speech. Strength is grossly symmetric. No sensory deficits. Psychiatric: Good eye contact. Normal interaction, affect and behavior. <Deep Cohen - Last Filed: 09/28/18 18:33> ED Treatment Course - Medications Given in the ED: ED Medications Discontinued Medications Generic Name Dose Route Start Last Admin Trade Name Danny PRN Reason Stop Dose Admin Ibuprofen 600 mg 09/28/18 17:39 09/28/18 18:08 Motrin - PO 09/28/18 17:40 600 mg ONCE ONE Administration Lidocaine 1 patch 09/28/18 17:39 09/28/18 18:08 Lidoderm Patch - TP 09/28/18 17:40 1 patch ONCE ONE Administration <Deep Cohen - Last Filed: 09/28/18 18:33> Medical Decision Making - Medical Decision Making 09/28/18 17:41 a/p: 37yo male s/p mechanical fall off a step stool and landing on his back -c/o b/l lower rib pain - worse with inspiration and movement -ttp over lower ribs, no deformity palpated -lungs cta -will obtain xray rib series b/l -ua to eval for hematuria given lower rib pain -pain control, incentive spirometry -will monitor and reassess -pt is nontoxic in appearance 09/28/18 18:44 ua negative 09/28/18 18:54 xrays reviewed - no acute fx seen, poss old fx to the right pt states he has broken a rib in the past will give incentive spirometry pain control has appt with his floral specialist/orthopedist for friday also follows with dr. valentin headley for d/c to home <Keysha Stroud - Last Filed: 09/28/18 18:58> *DC/Admit/Observation/Transfer - Attestations Scribe Attestion: 09/28/18 18:34 Documentation prepared by Deep Cohen, acting as medical coder for Keysha Stroud DO. <Deep Cohen - Last Filed: 09/28/18 18:33> - Discharge Dispostion Decision to Admit order: No - Attestations Physician Attestion: 09/28/18 18:58 I, Dr. Keysha Stroud DO, attest that this document has been prepared under my direction and personally reviewed by me in its entirety. I further attest, that it accurately reflects all work, treatment, procedures and medical decision -making performed by me. <Keysha Stroud - Last Filed: 09/28/18 18:58> Diagnosis at time of Disposition: Rib contusion - Discharge Dispostion Disposition: HOME Condition at time of disposition: Stable - Prescriptions Prescriptions: Ibuprofen [Motrin -] 600 mg PO TID PRN #15 tablet PRN Reason: Pain - Referrals Referrals: Lia García MD [Non Staff, Medical] - Benjamin Valdez MD [Staff Physician] - Oseas Fenton MD [Staff Physician] - - Patient Instructions Printed Discharge Instructions: How to Prevent Falls, DI for Rib Contusion Additional Instructions: Please take the motrin with food or milk. Please follow up with your PMD and your orthopedist as scheduled for friday. Please use the incentive spirometer 10x every hour you are awake. Please avoid further injury. Please return to the ED with any further concerns or complaints.
[2018-09-28] MEDS ORDERED: LIDOCAINE 5% TOPICAL PATCH TP ONE (17:39)
[2018-09-28] MEDS ORDERED: IBUPROFEN 600 MG TABLET (FP) PO ONE ×2 (17:39→18:06)
[2018-09-28 18:02] VITALS: BP 129/79; PULSE 75; TEMP 98.1; BMI 24.3
[2018-09-28] MEDS ORDERED: LIDOCAINE 5% TOPICAL PATCH ONE (18:06)
[2018-09-28 18:43] LABS: PH,URINE 5.5 (4.5-8); URINE APPEARANCE Clear; URINE BILIRUBIN Negative (NEGATIVE); URINE COLOR Yellow; URINE GLUCOSE (UA) Negative (NEGATIVE); URINE KETONE Negative (NEGATIVE); URINE LEUK ESTERASE Negative (NEGATIVE); URINE NITRITE Negative (NEGATIVE); URINE PROTEIN Negative (NEGATIVE); URINE UROBILINOGEN 0.2 (0.2-1.0)
[2018-09-28] MEDS ORDERED: LIDOCAINE PATCH REMOVAL MC SCH (22:00)
== END 2018-09-28 19:05 | disposition home or self-care (01) ==
LOC: FER 16:56
DX: S20.211A Contusion of right front wall of thorax, initial encounter (principal); K70.0 Alcoholic fatty liver; W17.89XA Other fall from one level to another, initial encounter; Y93.89 Activity, other specified; Y92.9 Unspecified place or not applicable
CPT/HCPCS: 71111-TC-FY; 81003; 99282-25

== ENCOUNTER 2018-11-11 14:38 | Emergency (ER) | payer BC ==
[2018-11-11 14:48] VITALS: BP 138/95; PULSE 76; TEMP 97.5; BMI 25.8
[2018-11-11] MEDS ORDERED: FAMOTIDINE 20 MG TABLET PO ONE (15:18)
[2018-11-11] MEDS ORDERED: LIDOCAINE VISCOUS 2% ORAL/TOP 20 ML UNIT-DOSE CUP MM ONE (15:18)
[2018-11-11] MEDS ORDERED: MAG HYDROX/AL HYDROX/SIMETH 30 ML UNIT-DOSE CUP PO ONE (15:18)
--- NOTE | 2018-11-11 15:18 | PDOC ---
History of Present Illness - General Chief Complaint: Pain Stated Complaint: UPPER ABD,BOTH SIDE BURNING Time Seen by Provider: 11/11/18 14:40 History Source: Patient Exam Limitations: No Limitations - History of Present Illness Initial Comments: 11/11/18 15:15 38 yo male here with c/o upper abdominal pain and generalized rib pains. pt states had injury many months ago was seen in ed had xray for rib fracture which was reportedly negative. today started feeling combination of achy and burning pain. no fc no n/v did have cough yesterday was concerned because on of friends at a new [employer] republican was sick with pneumonia. Past History - Past Medical History Allergies/Adverse Reactions: Allergies Allergy/AdvReac Type Severity Reaction Status Date / Time No Known Allergies Allergy Verified 11/11/18 14:39 Home Medications: Ambulatory Orders NK [No Known Home Medication] 11/11/18 Anemia: No Asthma: No Cancer: No Cardiac Disorders: No CVA: No COPD: No CHF: No Dementia: No Diabetes: No GI Disorders: Yes (GERD;HIATAL HERNIA) Disorders: No HTN: No Hypercholesterolemia: No Liver Disease: Yes (ALCOHOLIC FATTY LIVER) Psychiatric Problems: Yes (anxiety) Seizures: No Thyroid Disease: No - Surgical History Orthopedic Surgery: Yes (RIGHT ELBOW SURGERY) - Immunization History Immunization Up to Date: Yes - Suicide/Smoking/Psychosocial Hx Smoking Status: Yes Smoking History: Current every day smoker Have you smoked in the past 12 months: Yes Number of Cigarettes Smoked Daily: 10 Cigars Per Day: 15 Information on smoking cessation initiated: Yes 'Breaking Loose' booklet given: 09/28/18 Hx Alcohol Use: No Drug/Substance Use Hx: No Substance Use Type: Alcohol Hx Substance Use Treatment: No Review of Systems - Review of Systems Constitutional: No: Chills, Diaphoresis, Fever Respiratory: Yes: Cough. No: Orthopnea, Shortness of Breath Cardiac (ROS): Yes: Chest Pain ABD/GI: Yes: Other (abd pain) : No: Burning, Dysuria Musculoskeletal: No: Back Pain, Joint Pain Integumentary: No: Bruising All Other Systems: Reviewed and Negative *Physical Exam - Vital Signs Last Vital Signs Temp Pulse Resp BP Pulse Ox 97.5 F L 76 20 138/95 100 11/11/18 14:39 11/11/18 14:39 11/11/18 14:39 11/11/18 14:39 11/11/18 14:39 - Physical Exam Comments: 11/11/18 15:16 awake alert lungs clear bilaterally ribs nontender. no crepitus no step off. mild epigastric ttp. no rebound no guarding, all else nontender. skin warm and dry. Moderate Sedation - Procedure Monitoring Vital Signs: Procedure Monitoring Vital Signs Temperature 97.5 F L 11/11/18 14:39 Pulse Rate 76 11/11/18 14:39 Respiratory Rate 20 11/11/18 14:39 Blood Pressure 138/95 11/11/18 14:39 O2 Sat by Pulse Oximetry (%) 100 11/11/18 14:39 Heart Score/ECG Review #1 General ECG Interpretation: Sinus Rhythm, Normal Rate (65), Normal Intervals, No acute ischemic changes Medical Decision Making - Medical Decision Making 11/11/18 15:17 38 yo male with c/o achy rib pain, epigastric burning discomfort. given maalox, gi cocktail.cxr r/o underlying infection or rib injury. ekg. pt sxs mild no n/v or diarrhea. no labs necessary. will refer to pcp outpt told to return for worsenign sxs. 11/11/18 16:21 xray negative for pna or other lung pathology. no rib fx. ekg unrmarkable. dc home 11/11/18 16:31 pt feels improved after meds, states he has a gi followup. *DC/Admit/Observation/Transfer Diagnosis at time of Disposition: GERD (gastroesophageal reflux disease) - Discharge Dispostion Disposition: HOME Condition at time of disposition: Improved - Referrals Referrals: Daryl Dodson MD [Staff Physician] - - Patient Instructions Printed Discharge Instructions: Gastroesophageal Reflux Disease (Alternative Therapy) Additional Instructions: you should take pepcid 20 mg daily . you should also follow up wtih a senior functional analyst. you can call dr dodson, see referral information to schedule. you should also follow up with a primary doctor see referral information for Dr Murillo if you do not have one, call to schedule for followup within 1 - 2 weeks. return for any shortness of breath, fever worsening pains or any concerns. - Post Discharge Activity
[2018-11-11] MEDS ORDERED: MAG HYDROX/AL HYDROX/SIMETH 30 ML UNIT-DOSE CUP ONE (15:32)
[2018-11-11] MEDS ORDERED: FAMOTIDINE 20 MG TABLET ONE (15:32)
[2018-11-11] MEDS ORDERED: LIDOCAINE VISCOUS 2% ORAL/TOP 20 ML UNIT-DOSE CUP ONE (15:32)
--- NOTE | 2018-11-12 16:23 | EKG ---
Test Reason : Blood Pressure : / mmHG Vent. Rate : 065 BPM Atrial Rate : 065 BPM P-R Int : 170 ms QRS Dur : 116 ms QT Int : 412 ms P-R-T Axes : 068 084 052 degrees QTc Int : 428 ms NORMAL SINUS RHYTHM EARLY REPOLARIZATION NORMAL ECG WHEN COMPARED WITH ECG OF 12-MAY-2018 09:44, NO SIGNIFICANT CHANGE WAS FOUND Confirmed by SHELLY SANTO MD ([id number]) on 11/12/2018 4:23:47 PM Referred By: MD DESOUZA Confirmed By:SHELLY SANTO MD
== END 2018-11-11 16:33 | disposition home or self-care (01) ==
LOC: FER 14:38
DX: K21.9 Gastro-esophageal reflux disease without esophagitis (principal)
CPT/HCPCS: 71046-TC-FY; 93005; 99283-25

== ENCOUNTER 2018-12-10 10:29 | Emergency (ER) | payer BC ==
[2018-12-10 10:35] VITALS: BP 122/74; PULSE 74; TEMP 97.6; BMI 25.0
--- NOTE | 2018-12-10 10:44 | PDOC ---
History of Present Illness - General Chief Complaint: Lightheaded Stated Complaint: DIZZINESS Time Seen by Provider: 12/10/18 10:43 - History of Present Illness Initial Comments: 12/10/18 12:01 Chief complaint: Dizziness History of present illness: Patient describes a sensation of vertigo starting this morning while he was standing eating his breakfast at work. He states that the room around him appeared to be undulating and he felt difficulty maintaining his balance when he was walking. He has also had left ear pain since last night associated with a mild URI. Review of systems: No chest pain, shortness of breath, abdominal pain, nausea, vomiting, diarrhea, visual or focal neurologic symptoms. No lightheadedness, near-syncope or syncope. No fever/chills, sore throat, cough, urinary tract symptoms. Past medical history: Pancreatitis associated with alcohol consumption, chronic neck and low back pain. Social history: Smoker, moderate alcohol intake, denies drugs. 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 Stable home and family Family history: Reviewed and noncontributory including early cardiac disease, early coronary artery disease/[place], metabolic diseases including diabetes and cancer. Physical exam: Alert and oriented well-developed well-nourished no acute distress cheerful and cooperative Afebrile, vital signs normal HEENT: Mild nasal congestion, ears and throat clear except for mild peripheral erythema of the left TM. PERRLA, fundi benign. Neck supple without bruit mass or nodes Chest clear, full breath sounds bilaterally, no wheezes rales or rhonchi CV S1 and S2 normal without murmur rub or gallop pulses full and symmetric no JVD or edema no bruits 60 and regular Abdomen soft nontender without mass or organomegaly Neurological C2 to 12 intact. Strength full and symmetric. No focal sensory or motor deficits. Gait stable and unimpaired except for mild unsteadiness for the first few seconds upon arising. There is also a vertigo sensation induced by rapid change of position and rapid head movement. Extremities no CCE Skin clear, no rash, adequate turgor and wet mucous membranes Impression: URI, acute labyrinthitis left Plan: Trial of meclizine was administered with improvement in symptoms. At discharge the vertigo had resolved, the patient was completely steady on his feet, but instructed to stay home, continue medication for several days, return to ER if symptoms worsen, otherwise follow-up with primary physician. Past History - Past Medical History Allergies/Adverse Reactions: Allergies Allergy/AdvReac Type Severity Reaction Status Date / Time No Known Allergies Allergy Verified 12/10/18 10:31 Home Medications: Ambulatory Orders Meclizine HCl 25 - 50 mg PO TID PRN #30 tab.chew 12/10/18 Anemia: No Asthma: No Cancer: No Cardiac Disorders: No CVA: No COPD: No CHF: No Dementia: No Diabetes: No GI Disorders: Yes (GERD, HIATAL HERNIA, PANCREATITIS) Disorders: No HTN: No Hypercholesterolemia: No Liver Disease: Yes (ALCOHOLIC FATTY LIVER) Psychiatric Problems: Yes (anxiety) Seizures: No Thyroid Disease: No - Surgical History Orthopedic Surgery: Yes (RIGHT ELBOW SURGERY) - Immunization History Immunization Up to Date: Yes - Suicide/Smoking/Psychosocial Hx Smoking Status: Yes Smoking History: Current some day smoker Have you smoked in the past 12 months: Yes Number of Cigarettes Smoked Daily: 10 Cigars Per Day: 15 Information on smoking cessation initiated: Yes 'Breaking Loose' booklet given: 09/28/18 Hx Alcohol Use: No Drug/Substance Use Hx: No Substance Use Type: Alcohol Hx Substance Use Treatment: No *Physical Exam - Vital Signs Last Vital Signs Temp Pulse Resp BP Pulse Ox 97.6 F 74 18 122/74 100 12/10/18 10:30 12/10/18 10:30 12/10/18 10:30 12/10/18 10:30 12/10/18 10:30 Moderate Sedation - Procedure Monitoring Vital Signs: Procedure Monitoring Vital Signs Temperature 97.6 F 12/10/18 10:30 Pulse Rate 74 12/10/18 10:30 Respiratory Rate 18 12/10/18 10:30 Blood Pressure 122/74 12/10/18 10:30 O2 Sat by Pulse Oximetry (%) 100 12/10/18 10:30 ED Treatment Course - LABORATORY CBC & Chemistry Diagram: 12/10/18 10:57 12/10/18 10:57 Medical Decision Making - Medical Decision Making 12/10/18 10:44 EKG reveals normal sinus rhythm 62 bpm, normal axes and intervals, probably no significant ST-T wave changes, although there is an isolated [address] elevation in lead 2 which is most likely early repolarization. This is seen to a lesser extent in lead aVF. *DC/Admit/Observation/Transfer Diagnosis at time of Disposition: Vertigo - Discharge Dispostion Disposition: HOME Condition at time of disposition: Improved Decision to Admit order: No - Prescriptions Prescriptions: Meclizine HCl 25 - 50 mg PO TID PRN #30 tab.chew PRN Reason: Vertigo - Referrals Referrals: Vishnu Garner MD [Primary Care Provider] - 3 days - Patient Instructions Printed Discharge Instructions: DI for Vertigo, DI for Labyrinthitis Additional Instructions: Stay home, rest and medication as directed, return to ER if symptoms worsen, otherwise see primary physician for follow-up 3-5 days. - Post Discharge Activity Forms/Work/School Notes: Back to Work
[2018-12-10 11:12] LABS: BASO % 0.5 % (0-2.0); EOS % 3.3 % (0-4.5); HEMATOCRIT 44.4 % (35.4-49); HEMOGLOBIN 15.1 GM/dl (11.7-16.9); MCH 30.8 pg (25.7-33.7); MEAN CELL VOLUME 90.6 fl (80-96); MEAN PLT VOLUME 9.3 fl (7.5-11.1); MONO % 8.1 % (3.8-10.2); NEUT % 60.1 % (42.8-82.8); PLATELET COUNT 191 K/MM3 (134-434); RDW 12.6 % (11.9-15.9)
[2018-12-10 11:20] LABS: ALBUMIN 4.2 g/dl (3.4-5.0); ALK PHOS 91 U/L (45-117); ANION GAP 8 MMOL/L (8-16); BILIRUBIN,TOTAL 0.9 mg/dl (0.2-1); BLOOD UREA NITROGEN 19 mg/dl (7-18); CALCIUM 9.1 mg/dl (8.5-10); CHLORIDE 104 mmol/L (98-107); CO2 26 mmol/L (21-32); CREATININE 1.1 mg/dl (0.55-1.3); GLUCOSE,RANDOM 107 mg/dl (74-106); POTASSIUM 3.9 mmol/L (3.5-5.1); SGOT/AST 22 U/L (15-37); SGPT/ALT 17 U/L (13-61); SODIUM 138 mmol/L (136-145); TOT PROT 7.1 g/dl (6.4-8.2)
[2018-12-10] MEDS ORDERED: MECLIZINE HCL 25 MG TABLET (FP) PO ONE (11:26)
[2018-12-10] MEDS ORDERED: MECLIZINE HCL 25 MG TABLET (FP) ONE (11:28)
--- NOTE | 2018-12-10 14:16 | EKG ---
Test Reason : Blood Pressure : / mmHG Vent. Rate : 062 BPM Atrial Rate : 062 BPM P-R Int : 168 ms QRS Dur : 106 ms QT Int : 400 ms P-R-T Axes : 056 086 053 degrees QTc Int : 406 ms NORMAL SINUS RHYTHM NORMAL ECG WHEN COMPARED WITH ECG OF 11-NOV-2018 15:27, NO SIGNIFICANT CHANGE WAS FOUND Confirmed by SHELLY SANTO MD ([id number]) on 12/10/2018 2:16:42 PM Referred By: LUKE BERMUDEZ Confirmed By:SHELLY SANTO MD
== END 2018-12-10 12:00 | disposition home or self-care (01) ==
LOC: FER 10:29
DX: R42 Dizziness and giddiness (principal); G89.29 Other chronic pain
CPT/HCPCS: 36415; 80053; 82550; 82553; 84484; 85025; 93005; 99285-25

== ENCOUNTER 2019-02-14 19:15 | Emergency (ER) | payer BC ==
[2019-02-14 19:19] VITALS: BP 138/89; PULSE 95; TEMP 98; BMI 25.0
[2019-02-14] MEDS ORDERED: SODIUM CHLORIDE 0.9% 1000 ML INFUS.BAG IV ONE (19:41)
[2019-02-14] MEDS ORDERED: ONDANSETRON 4 MG/2 ML VIAL IVPUSH ONE (19:41)
[2019-02-14] MEDS ORDERED: MECLIZINE HCL 25 MG TABLET (FP) PO ONE (19:41)
--- NOTE | 2019-02-14 19:41 | PDOC ---
History of Present Illness - General History Source: Patient Exam Limitations: No Limitations - History of Present Illness Initial Comments: 02/14/19 20:09 The patient is a 38 year old male with significant past medical history of GERD and pancreatitis, who presents to the emergency department today complaining of dizziness, lightheadedness, and nausea. He describes the dizziness as a woozy feeling and does not feel as though the room is spinning. The patient states that he was doing yard work today and feels as though he may be dehydrated. When attempting drinking some water, pt states he felt nauseous. The patient states that his last meal was at lunch time and he was able to hold the food down. Denies any episodes of vomiting. The patient denies any abdominal pain. Pt notes that he had vertigo in the past, but these symptoms do not feel similar. Pt notes that he traveled to [facility] in Dec. Denies chest pain, SOB. Denies fever, chills, vomiting, diarrhea. Denies headaches. Denies rashes. Allergies: NKA Social hx: Alcohol use ( beer last night). PCP: Dr. Garner <Ginna Dougherty - Last Filed: 02/14/19 20:23> <Rob Bear - Last Filed: 02/15/19 06:22> - General Chief Complaint: Lightheaded Stated Complaint: DIZZY Time Seen by Provider: 02/14/19 19:23 Past History <Ginna Dougherty - Last Filed: 02/14/19 20:23> - Past Medical History Anemia: No Asthma: No Cancer: No Cardiac Disorders: No CVA: No COPD: No CHF: No Dementia: No Diabetes: No GI Disorders: Yes (GERD, HIATAL HERNIA, PANCREATITIS) Disorders: No HTN: No Hypercholesterolemia: No Liver Disease: Yes (ALCOHOLIC FATTY LIVER) Psychiatric Problems: Yes (anxiety) Seizures: No Thyroid Disease: No - Surgical History Orthopedic Surgery: Yes (RIGHT ELBOW SURGERY) - Immunization History Immunization Up to Date: Yes - Suicide/Smoking/Psychosocial Hx Smoking Status: Yes Smoking History: Unknown if ever smoked Have you smoked in the past 12 months: No Number of Cigarettes Smoked Daily: 0 Cigars Per Day: 15 Information on smoking cessation initiated: No 'Breaking Loose' booklet given: 09/28/18 Hx Alcohol Use: No Drug/Substance Use Hx: No Substance Use Type: Alcohol Hx Substance Use Treatment: No <Rob Bear - Last Filed: 02/15/19 06:22> - Past Medical History Allergies/Adverse Reactions: Allergies Allergy/AdvReac Type Severity Reaction Status Date / Time No Known Allergies Allergy Verified 12/10/18 10:31 Home Medications: Ambulatory Orders Meclizine HCl [Antivert -] 25 mg PO DAILY #7 tablet 02/14/19 Review of Systems - Review of Systems Able to Perform ROS?: Yes Comments:: 02/14/19 20:10 A complete review of 10 out of 10 review of systems is taken and is negative apart from what is previously mentioned below and in the HPI. <Ginna Dougherty - Last Filed: 02/14/19 20:23> *Physical Exam - Vital Signs Last Vital Signs Temp Pulse Resp BP Pulse Ox 98 F 95 H 15 138/89 100 02/14/19 19:16 02/14/19 19:16 02/14/19 19:16 02/14/19 19:16 02/14/19 19:16 - Physical Exam Comments: 02/14/19 20:10 Vitals: Triage Vital signs reviewed General Appearance: no acute distress, well nourished well developed Eyes: Pupils equal reactive round, extraocular movement intact Nose: Nares patent bilaterally; no nasal congestion Throat: Posterior oropharynx without erythema, mucous membranes moist Neck: Supple; No Nucal rigidity Cardiac: Regular rate and rhythym, no murmurs, no rubs, no gallops Lungs: Clear to auscultation bilateral, good air movement bilaterally Abdomen: Soft, non distended, normal bowel sounds, non tender to palpation Extremities: Full range of motion to all extremities, no cyanosis, clubbing, or edema Skin: Warm and dry, no rashes or lesions, no rash, no petechiae Neuro: AOX3; Cranial Nerves 2-12 grossly intact, Strength intact to all extremities, Sensation intact to all extremities, gait normal Psych: Normal mood, normal affect <Ginna Dougherty - Last Filed: 02/14/19 20:23> - Vital Signs Last Vital Signs Temp Pulse Resp BP Pulse Ox 98 F 95 H 15 138/89 100 02/14/19 19:16 02/14/19 19:16 02/14/19 19:16 02/14/19 19:16 02/14/19 19:16 <Rob Bear - Last Filed: 02/15/19 06:22> ED Treatment Course - LABORATORY CBC & Chemistry Diagram: 02/14/19 19:57 02/14/19 19:57 - ADDITIONAL ORDERS Additional order review: 02/14/19 19:57 RBC 4.47 MCV 95.3 MCHC 33.4 RDW 12.7 MPV 9.4 Neutrophils % 66.2 Lymphocytes % 23.1 Monocytes % 7.7 Eosinophils % 2.4 Basophils % 0.6 - Medications Given in the ED: ED Medications Discontinued Medications Generic Name Dose Route Start Last Admin Trade Name Freq PRN Reason Stop Dose Admin Meclizine HCl 25 mg 02/14/19 19:41 02/14/19 20:02 Antivert - PO 02/14/19 19:42 25 mg ONCE ONE Administration Ondansetron HCl 4 mg 02/14/19 19:41 02/14/19 20:03 Zofran Injection IVPUSH 02/14/19 19:42 Not Given ONCE ONE Sodium Chloride 1,000 ml 02/14/19 19:41 02/14/19 20:02 Normal Saline - IV 02/14/19 19:42 1,000 ml ONCE ONE Administration <Ginna Dougherty - Last Filed: 02/14/19 20:23> - LABORATORY CBC & Chemistry Diagram: 02/14/19 19:57 02/14/19 19:57 <Rob Bear - Last Filed: 02/15/19 06:22> Medical Decision Making - Medical Decision Making 02/14/19 20:55 Well-appearing no apparent distress 38 years old with no significant past medical history presents to the lightheadedness and the concept of working outside all day and minimally not drinking much water Previous history notable for pancreatitis Laboratory analysis unremarkable. Status post fluids Zofran and wheezing patient feels much better no longer feels lightheaded we'll recommend increased fluids at home. Findings, the need for follow-up, strict return instructions discussed with patient. <Rob Bear - Last Filed: 02/15/19 06:22> *DC/Admit/Observation/Transfer - Attestations Pilaribe Attestion: 02/14/19 20:10 Documentation prepared by Ginna Estatico, SCRIBE, acting as medical device sales for Rob Bear MD. <Ginna Dougherty - Last Filed: 02/14/19 20:23> - Discharge Dispostion Decision to Admit order: No <Rob Bear - Last Filed: 02/15/19 06:22> Diagnosis at time of Disposition: Lightheaded - Discharge Dispostion Disposition: HOME Condition at time of disposition: Good - Prescriptions Prescriptions: Meclizine HCl [Antivert -] 25 mg PO DAILY #7 tablet - Referrals Referrals: Vishnu Garner MD [Primary Care Provider] - - Patient Instructions Printed Discharge Instructions: DI for Vertigo Additional Instructions: Drink plenty fluids. Meclizine as prescribed if you feel lightheaded. Follow-up with her primary care provider on Friday. Return to emergency department for any severe worsening symptoms or for any concerns. - Post Discharge Activity
[2019-02-14] MEDS ORDERED: ONDANSETRON 4 MG/2 ML VIAL ONE (19:46)
[2019-02-14] MEDS ORDERED: MECLIZINE HCL 25 MG TABLET (FP) ONE (19:46)
[2019-02-14 20:03] LABS: BASO % 0.6 % (0-2.0); EOS % 2.4 % (0-4.5); HEMATOCRIT 42.6 % (35.4-49); HEMOGLOBIN 14.3 GM/dl (11.7-16.9); LYMPH % 23.1 % (8-40); MCH 31.9 pg (25.7-33.7); MCHC 33.4 g/dl (32.0-35.9); MEAN CELL VOLUME 95.3 fl (80-96); MEAN PLT VOLUME 9.4 fl (7.5-11.1); MONO % 7.7 % (3.8-10.2); NEUT % 66.2 % (42.8-82.8); PLATELET COUNT 186 K/MM3 (134-434); RBC 4.47 M/mm3 (4.00-5.60); RDW 12.7 % (11.9-15.9)
[2019-02-14 20:16] LABS: ALBUMIN 4.1 g/dl (3.4-5.0); ALK PHOS 87 U/L (45-117); ANION GAP 10 MMOL/L (8-16); BILIRUBIN,TOTAL 0.7 mg/dl (0.2-1); BLOOD UREA NITROGEN 24 mg/dl (7-18); CALCIUM 8.9 mg/dl (8.5-10); CHLORIDE 103 mmol/L (98-107); CO2 25 mmol/L (21-32); CREATININE 1.1 mg/dl (0.55-1.3); GLUCOSE,RANDOM 155 mg/dl (74-106); POTASSIUM 3.6 mmol/L (3.5-5.1); SGOT/AST 34 U/L (15-37); SGPT/ALT 25 U/L (13-61); SODIUM 138 mmol/L (136-145); TOT PROT 6.9 g/dl (6.4-8.2)
[2019-02-14 21:00] LABS: LIPASE 171 U/L (73-393)
== END 2019-02-14 21:20 | disposition home or self-care (01) ==
LOC: FER 19:15
PROC: 3E0337Z Introduction of Electrolytic and Water Balance Substance into Peripheral Vein, Percutaneous Approach (ICD-10-PCS; principal; 2019-02-14)
DX: R42 Dizziness and giddiness (principal); F17.210 Nicotine dependence, cigarettes, uncomplicated; F41.9 Anxiety disorder, unspecified; K70.0 Alcoholic fatty liver
CPT/HCPCS: 36415; 80053; 83690; 85025; 99284-25; J7030

== ENCOUNTER 2019-03-16 15:36 | Emergency (ER) | payer BC ==
[2019-03-16 15:46] VITALS: BP 117/81; PULSE 85; TEMP 98.6; BMI 25.0
--- NOTE | 2019-03-16 15:49 | PDOC ---
History of Present Illness - General Chief Complaint: Lightheaded Stated Complaint: DIZZY Time Seen by Provider: 03/16/19 15:41 History Source: Patient Exam Limitations: No Limitations - History of Present Illness Initial Comments: 03/16/19 15:56 38 year old male with PMH pancreatitis, ETOH abuse, vertigo presented to ED for room spinning since last night. Pt stated todays symptoms feel similar to a prior episode a few months ago, which he was evaluated at [facility] ED for, was given Meclizine with resolution of symptoms. PT stated he did not roller picker his prescription for Meclizine and has intermittently had dizziness episodes. Pt stated he feels turning his head makes his dizziness worse. Pt denied weakness, numbness, tingling, visual changes, tinnitus, recent illness, fever, chills, nausea, vomiting, diarrhea, chest pain, shortness of breath, head injury. Allergies: NKDA Past History - Past Medical History Allergies/Adverse Reactions: Allergies Allergy/AdvReac Type Severity Reaction Status Date / Time No Known Allergies Allergy Verified 03/16/19 15:38 Home Medications: Ambulatory Orders Meclizine HCl [Antivert -] 25 mg PO DAILY #15 tablet 03/16/19 Anemia: No Asthma: No Cancer: No Cardiac Disorders: No CVA: No COPD: No CHF: No Dementia: No Diabetes: No GI Disorders: Yes (GERD, HIATAL HERNIA, PANCREATITIS) Disorders: No HTN: No Hypercholesterolemia: No Liver Disease: Yes (ALCOHOLIC FATTY LIVER) Psychiatric Problems: Yes (anxiety) Seizures: No Thyroid Disease: No Other medical history: VERTIGO - Surgical History Orthopedic Surgery: Yes (RIGHT ELBOW SURGERY) - Immunization History Immunization Up to Date: Yes - Suicide/Smoking/Psychosocial Hx Smoking Status: Yes Smoking History: Current every day smoker Have you smoked in the past 12 months: No Number of Cigarettes Smoked Daily: 15 Cigars Per Day: 15 Information on smoking cessation initiated: Yes 'Breaking Loose' booklet given: 09/28/18 Hx Alcohol Use: No Drug/Substance Use Hx: No Substance Use Type: Alcohol Hx Substance Use Treatment: No Review of Systems - Review of Systems Able to Perform ROS?: Yes Comments:: 03/16/19 15:58 General: admitted to generalized weakness. denied fever, chills. HEENT: denied sore throat, rhinorrhea, ear pain. Heart: denied chest pain, palpitations, syncope, diaphoresis. Respiratory: denied shortness of breath, cough, sputum production, hemoptysis. Abdomen: denied abdominal pain, nausea, vomiting, diarrhea, constipation, blood in stool. : denied dysuria, increased urinary frequency, hematuria, urinary incontinence , flank pain. Back: denied back pain. Musculoskeletal: denied joint pain, muscle pain, joint swelling. Neurological: admitted to dizziness. denied headache, numbness, tingling, weakness. Skin: denied rash, laceration, abrasion. *Physical Exam - Vital Signs Last Vital Signs Temp Pulse Resp BP Pulse Ox 98.6 F 85 16 117/81 100 03/16/19 15:37 03/16/19 15:37 03/16/19 15:37 03/16/19 15:37 03/16/19 15:37 - Physical Exam Comments: 03/16/19 16:00 Constitutional: Well-nourished, Well-developed, appearing stated age. HEENT: head is normocephalic, atraumatic. EOMI. PERRLA. no nystagmus. Neck: supple. Full ROM. Heart: regular rhythm. no murmurs, rubs or gallops. Lungs: clear to auscultation bilaterally. no crackles, rhonchi or wheezing. no stridor. Abdomen: soft, nontender. normal bowel sounds. no rebound, guarding, masses. Extremities: peripheral pulses intact. no lower extremity edema. Neurological: alert. oriented x3. CN2-12 intact. 5/5 strength all extremities. normal ankle plantar flexion. full sensation all extremities and bilateral face. no ataxia. gait normal. romberg negative. Psych: awake, alert, oriented x3. follows commands. answers questions appropriately. Medical Decision Making - Medical Decision Making 03/16/19 16:01 38 year old male with above PMH presented to ED for intermittent room spinning sensation. Initial Vital Signs Temp Pulse Resp BP Pulse Ox 98.6 F 85 16 117/81 100 03/16/19 15:37 03/16/19 15:37 03/16/19 15:37 03/16/19 15:37 03/16/19 15:37 Afebrile. No tachycardia. No tachypnea. No hypertension. No hypoxia on room air. Labs ordered: none Imaging ordered: none Medications ordered: Meclizine 03/16/19 16:36 Pt now complains of headache. Pt reported he ate half a bagel and a bag of chips today. Medications ordered: Tylenol 975 mg PO Food tray ordered. 03/16/19 16:49 Pt reported improvement of symptoms. Pt provided with ENT referral. Pt discharged. Discharge medications: Meclizine Pt offered food tray, left [employer] of food tray. *DC/Admit/Observation/Transfer Diagnosis at time of Disposition: Vertigo - Discharge Dispostion Disposition: HOME Condition at time of disposition: Improved Decision to Admit order: No - Prescriptions Prescriptions: Meclizine HCl [Antivert -] 25 mg PO DAILY #15 tablet - Referrals Referrals: Vishnu Garner MD [Primary Care Provider] - Je De La Garza MD [Staff Physician] - Andrei Jerry MD [Staff Physician] - Shadi Coe MD [Staff Physician] - Sreedhar Mathews MD [Staff Physician] - Nba Bullock MD [Staff Physician] - Margarito Daigle MD [Staff Physician] - Roxane Boo MD [Staff Physician] - - Patient Instructions Printed Discharge Instructions: DI for Vertigo Additional Instructions: You were seen today for dizziness. I have sent a prescription to your pharmacy for Meclizine to treat your dizziness. Pick it up today and take as advised on label. You took the first dose today. -You will need to see your primary care doctor or ENT doctor for a refill I have provided you with multiple referrals for an ENT doctor. Call as soon as possible and make an appointment for within a week. Follow up with your primary care doctor within a week. Return to the Emergency Department for dizziness despite Meclizine use, increasing headache despite Tylenol use, chest pain, shortness of breath, weakness, numbness, tingling, fever, chills, vomiting or any other new, worsening or concerning symptoms. - Post Discharge Activity Forms/Work/School Notes: Back to Work
[2019-03-16] MEDS ORDERED: MECLIZINE HCL 25 MG TABLET (FP) PO ONE (15:56)
[2019-03-16] MEDS ORDERED: MECLIZINE HCL 25 MG TABLET (FP) ONE (16:01)
[2019-03-16] MEDS ORDERED: ACETAMINOPHEN 325 MG TABLET (FP) PO ONE (16:36)
[2019-03-16] MEDS ORDERED: ACETAMINOPHEN 325 MG TABLET (FP) ONE (16:37)
--- NOTE | 2019-03-16 16:58 | PDOC ---
Attending Attestation - Resident Resident Name: AdrianneJackelyn - ED Attending Attestation I have performed the following: I have examined & evaluated the patient, The case was reviewed & discussed with the resident, I agree w/resident's findings & plan - HPI HPI: 03/16/19 16:54 Healthy 38-year-old male with history of sinusitis and intermittent vertigo over the last few months presents now for exacerbation of his vertigo. 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 No associated vision change or double vision, no speech change/ nausea/vomiting/focal deficit. Presents for evaluation because prior prescriptions for meclizine were not filled, he has not followed up ENT or neurology. Denies any tinnitus, denies any associated headaches or fevers or chills, no other neurological complaints. - Physicial Exam PE: 03/16/19 16:55 Vital signs normal Well-appearing and ambulating steadily but cautiously moving his head Pupils are equal and reactive to light, sharp movements are intact No audible carotid bruit TMs are clear bilaterally Vertigo is reproducible with head rotation Heart is regular, lungs are clear NEURO: Mental status: The patient is alert and oriented x3. Cranial nerves: Cranial nerves II through XII are intact Motor: The upper extremities are 5 over 5 in all muscle groups. The lower extremities are 5 over 5 in all muscle groups. No pronator drift. Sensation: Sensation is intact to light touch throughout. Cerebellar: Aelrqq-hwdors-naqu is normal in both upper extremities. Heel-knee- acuna is normal in both lower extremities. Reflexes: 2+ and symmetric in the upper and lower extremities. Gait: Normal. Heel and toe walking are normal. Tandem gait is normal. - Medical Decision Making 03/16/19 16:58 38-year-old male with positional vertigo today, well-appearing here with normal neurological exam. Presentation is most consistent with exacerbation of his likely underlying peripheral vertigo, etiology unclear. Symptoms improved after meclizine No indication for emergent imaging We'll give ENT and neurology referral Understands return criteria.
== END 2019-03-16 17:00 | disposition home or self-care (01) ==
LOC: FER 15:36
DX: R42 Dizziness and giddiness (principal); K76.0 Fatty (change of) liver, not elsewhere classified; F17.210 Nicotine dependence, cigarettes, uncomplicated; K21.9 Gastro-esophageal reflux disease without esophagitis; K44.9 Diaphragmatic hernia without obstruction or gangrene
CPT/HCPCS: 99281-25

== ENCOUNTER 2019-04-23 09:00 | Emergency (ER) | payer BC | END 2019-04-23 11:38 | disposition home or self-care (01) | LOC: FER 09:00 ==

== ENCOUNTER 2019-06-28 13:51 | Emergency (ER) | payer BC, OTHER ==
--- NOTE | 2019-06-28 13:58 | PDOC ---
History of Present Illness - General Chief Complaint: Pain Stated Complaint: LEFT ANKLE, , RASH BOTH ARMS, NECK, BACK Time Seen by Provider: 06/28/19 13:53 History Source: Patient Exam Limitations: No Limitations - History of Present Illness Initial Comments: 06/28/19 16:44 38 yo M otherwise healthy presenting with 2 days of left ankle swelling and pain w/o f/c or h/o trauma. Increased pain with movement of L foot and a sensation w/ movement. No numbness or tingling. Denies IVDA, recent illness, exposure to forests, travel. No h/o gout, no FHx RA / autoimmune dz. Is sexually active in monogamous relationship. Denies other joint pain or myalgias. Also complaining of 2 weeks of pruritic rash after a bee-sting; was seen by urgent care and given PO steroids. Symptoms have no resolved, involves right elbow and forearm; left forearm, neck, and back. Denies environmental changes, new detergents, new medications, sick contacts. DENIES f/c, n/v/d, dysuria, cp, sob, cough/rhinorrhea/sorethroat, decr po intake. PMH: h/o pancreatitis. MEDS: none NKDA Endorses occasional etoh and tobacco. No other drugs. Past History - Past Medical History Allergies/Adverse Reactions: Allergies Allergy/AdvReac Type Severity Reaction Status Date / Time No Known Allergies Allergy Verified 06/28/19 13:52 Home Medications: Ambulatory Orders Clindamycin [Cleocin -] 300 mg PO TID #21 capsule 06/28/19 Triamcinolone 0.1% Cream [Aristocort 0.1% Cream -] 15 gm NR BID #1 tube Anemia: No Asthma: No Cancer: No Cardiac Disorders: No CVA: No COPD: No CHF: No Dementia: No Diabetes: No GI Disorders: Yes (GERD, HIATAL HERNIA, PANCREATITIS) Disorders: No HTN: No Hypercholesterolemia: No Liver Disease: Yes (ALCOHOLIC FATTY LIVER) Psychiatric Problems: Yes (anxiety) Seizures: No Thyroid Disease: No - Surgical History Orthopedic Surgery: Yes (RIGHT ELBOW SURGERY) - Immunization History Immunization Up to Date: Yes - Suicide/Smoking/Psychosocial Hx Smoking Status: Yes Smoking History: Current every day smoker Have you smoked in the past 12 months: Yes Number of Cigarettes Smoked Daily: 15 Cigars Per Day: 15 'Breaking Loose' booklet given: 04/23/19 Hx Alcohol Use: Yes Drug/Substance Use Hx: No Substance Use Type: Alcohol Hx Substance Use Treatment: No Review of Systems - Review of Systems Able to Perform ROS?: Yes Comments:: 06/28/19 16:44 DENIES f/c, n/v/d, dysuria, cp, sob, cough/rhinorrhea/sorethroat, decr po intake. Is the patient limited Bengali proficient: No *Physical Exam - Physical Exam Comments: 06/28/19 16:45 GEN: Well appearing, NAD, nontoxic. AAOx3 HEENT: NC/AT, EOMI, PERRLA CV: S1/S2, RRR, no m/r/g LUNG: CTAB, no wheezes, crackles, rales, rhonchi. GI: soft, ndnt, +BS, no guarding, no rebound. No masses. EXTREMITIES: 2+ distal pulses. full and equal sensation b/l. Left ankle is swollen, warm, and mildly erythematous. There is TTP of anterior aspect of left ankle and a "gritty" feel w/ dorsiflexion of the left foot. No tenderness, warmth, or effusion of knees. NEURO: Conversing appropriately, can move all extremities well. DERM: erythematous macular-papular rash of the right elbow and forearm, about 3cm x 3cm and 1x1cm respectively. single papule on the L shoulder blade. ED Treatment Course - LABORATORY CBC & Chemistry Diagram: 06/28/19 15:10 06/28/19 15:10 Medical Decision Making - Medical Decision Making 06/28/19 14:27 38 yo M w/ acute left ankle pain and swelling w/o f/c/trauma. Neurovascularly intact and afebrile. Also 2 weeks of pruritic maculo-papular rash on the forearms. DDx - gout, septic arthritis, cellulitis; unlikely OM - CBC, CMP, CRP, ESR, UA - XR - pain ctrl - likely dispo home on abx, pcp and ortho f/u For rash likely contact dermatitis given pattern and chronicity - derm f/u, topical steroid DDx - contact dermatitis, early psorasis, ringworm, unknown environmental exposure. Sent off lyme titers w/ call-back // dispo home w/ pcp/derm/ortho f/u, return precautions, abx and steroid cream *DC/Admit/Observation/Transfer Diagnosis at time of Disposition: Ankle pain, left Qualifiers: Chronicity: acute Qualified Code(s): M25.572 - Pain in left ankle and joints of left foot - Discharge Dispostion Disposition: HOME Condition at time of disposition: Stable Decision to Admit order: No - Prescriptions Prescriptions: Clindamycin [Cleocin -] 300 mg PO TID #21 capsule Triamcinolone 0.1% Cream [Aristocort 0.1% Cream -] 15 gm NR BID #1 tube - Referrals Schedule a call back: lyme titer Referrals: Mandy Greer MD [Staff Physician] - Vishnu Garner MD [Primary Care Provider] - Lane Damon DO [Staff Physician] - - Patient Instructions Additional Instructions: Follow up with your Primary Care Doctor regarding this visit in the next 1-3 days. Please see the attached referral for Dr. Mandy Greer ([employer] Worker Apprentice): Call and make an appointment within the next week for follow up regarding this visit. Mandy Greer MD [address] [place] [address] P: [phone] Please see the attached referral for Dr. Lane Damon (Orthopedic Surgeon): Call and make an appointment within the week for follow up regarding your ankle. [facility] [place] [address] P: [phone] We have sent a prescription cream to your pharmacy; please sweet pickle maker and apply to affected area as directed. AVOID the face and genitals with this cream. You may take ibuprofen (eg motrin) for pain as directed on bottle. Return to the Emergency Department IMMEDIATELY if you experience: - high fever - red streaking of the leg - worsening pain - inability to walk - worsening of your symptoms - ANYTHING that concerns you - Post Discharge Activity
[2019-06-28 14:00] VITALS: BP 122/87; PULSE 87; TEMP 98.1; BMI 25.0
[2019-06-28] MEDS ORDERED: IBUPROFEN 600 MG TABLET (FP) PO ONE ×2 (14:24→14:45)
[2019-06-28] MEDS ORDERED: DIPHTH,PERTUSS(ACELL),TET 0.5 ML DISP.SYRIN IM ONE (14:39)
[2019-06-28 15:35] LABS: BASO % 0.6 % (0-2.0); HEMOGLOBIN 15.2 GM/dl (11.7-16.9); LYMPH % 25.9 % (8-40); MCH 31.8 pg (25.7-33.7); MCHC 33.8 g/dl (32.0-35.9); MEAN CELL VOLUME 94.1 fl (80-96); MEAN PLT VOLUME 9.5 fl (7.5-11.1); MONO % 6.7 % (3.8-10.2); NEUT % 64.8 % (42.8-82.8); PLATELET COUNT 192 K/MM3 (134-434); RBC 4.78 M/mm3 (4.00-5.60); RDW 12.3 % (11.9-15.9); WHITE BLOOD COUNT 7.6 K/mm3 (4.0-10.8)
[2019-06-28 15:51] LABS: ALBUMIN 4.3 g/dl (3.4-5.0); BILIRUBIN,TOTAL 0.6 mg/dl (0.2-1); CALCIUM 9.3 mg/dl (8.5-10); CREATININE 0.9 mg/dl (0.55-1.3); POTASSIUM 3.9 mmol/L (3.5-5.1); TOT PROT 7.1 g/dl (6.4-8.2); URIC ACID 4.8 mg/dl (2.6-7.2)
--- NOTE | 2019-06-28 16:34 | PDOC ---
Attending Attestation - Resident Resident Name: PaulWally - ED Attending Attestation I have performed the following: I have examined & evaluated the patient, The case was reviewed & discussed with the resident, I agree w/resident's findings & plan, Exceptions are as noted - HPI HPI: 06/28/19 16:28 38 yo male no pmhx here with c/o left ankle swelling and pain x 3 days. no h/o gout. no f/c is able to walk but has pain with range of motion. denies iv drug use. also c/o rash right inner arm for which he was started on steroids for and completed few days ago. was given steroid prescription by an urgent care. no f/ c no new lotions or creams. no sob. no h/o ra or SLE, no family h/o autoimmune disorder. no sxs such as penile dc no dysuria. no other complaints. - Physicial Exam PE: 06/28/19 16:31 awake alert lungs clear bilat heart rrr no mrg abd soft nt nd ext wwp. right inner elbow with patchy scaling rash. localized. no central clearing. dry scaly. small patch over forearm. other mabrosio skin clear and dry. left ankle with min warmth, ttp over antior foot/ ankle. FROm. pain with ranging. no visible effusion. min erythema to ankle. 2+ dp/ pt pulses. nuero alert oriented x 3. - Medical Decision Making 06/28/19 16:32 differential septic joint however pt can range, gouty arthritis new dgx, infection such as cellulitis, dermatomal rash could be contact dermatitis, psoriasis, numular eczema. fungal infection considered however no central clearing. plan clindamycin for possible cellulitis x one week. labs esr crp. lyme titer sent r/o other causes arthritis. esr normal cbc normal wbc, crp normal. urice acid normal. given rx for clindamycin. lyme titers pending. pt has fu with pcp in 48 hours. given warning signs to come back. given topical triamcinolone for rash.
== END 2019-06-28 16:45 | disposition home or self-care (01) ==
LOC: FER 13:51
DX: M25.572 Pain in left ankle and joints of left foot (principal); F17.210 Nicotine dependence, cigarettes, uncomplicated; K76.0 Fatty (change of) liver, not elsewhere classified; F41.9 Anxiety disorder, unspecified
CPT/HCPCS: 36415; 73610-TC-LT-FY; 73630-TC-LT; 80053; 84550; 85025; 85651; 86140; 86618; 99284-25

== ENCOUNTER 2019-08-30 04:25 | Emergency (ER) | payer BC ==
[2019-08-30 04:31] VITALS: BP 141/95; PULSE 88; TEMP 97.3; BMI 25.0
--- NOTE | 2019-08-30 04:42 | PDOC ---
History of Present Illness - General Chief Complaint: Pain, Acute Stated Complaint: CHEST PAIN/ANXIETY Time Seen by Provider: 08/30/19 04:38 History Source: Patient Exam Limitations: No Limitations - History of Present Illness Initial Comments: 08/30/19 This is a 38-year-old male who comes in complaining of chest pain. Patient said he woke up with a sensation of chest pain and difficulty breathing. Patient has a history of similar symptoms in the past secondary to anxiety. Patient has had a number of work-ups that were negative. Patient's only risk factor for coronary disease is smoking. Patient denies any chest pain at this time, shortness of breath, nausea, vomiting or any other complaints. Allergies: as per nursing notes Past Medical History: none Social history: Lives with family. No smoking. No alcohol. No illicit drugs. Surgical history: None General: No fevers or chills, no weakness, no weight loss HEENT: No change in vision. No sore throat,. No ear pain CardioVascular: +-year-old male chest discomfort. No shortness of breath Respiratory:No cough, or wheezing. Gastrointestinal: no nausea, vomiting, diarrhea or constipation, No rectal bleeding Genitourinary: No dysuria, hematuria, or frequency Musculoskeletal: No joint or muscle pain or swelling Neurologic: No headache, vertigo, dizziness or loss of consciousness Psychiatric: nor depression Skin: No rashes or easy bruising Endocrine: no increased thirst or abnormal weight change Allergic: no skin or latex allergy All other systems reviewed and normal Exam: General: Well-nourished well-developed individual, no acute distress HEENT: Throat: Normal, tonsils normal, no erythema or exudate Neck: Supple, no meningeal signs, no lymphadenopathy Eyes::Pupils equal reactive and round, extraocular motion intact Chest: Nontender to palpation Cardiac: S1-S2 normal, regular rate and rhythm, no murmurs rubs or gallops Respiratory: Lungs clear to auscultation bilateral Abdomen: Soft, nondistended, normal bowel sounds, there is no tenderness on palpation diffusely Extremities: Warm, dry, no cyanosis, clubbing, or edema Skin: No rashes Neuro: Alert and oriented x3, CN II - XII intact, nonfocal exam with normal strength, normal sensation, normal reflexes, normal gait, Psych: Normal mood and affect no Assessment and plan: This is a 38-year-old male with an episode of chest pain secondary to anxiety. Patient had an EKG that was normal. Patient's exam was normal. Patient was reassured and discharged. Patient told to stop smoking and follow-up with his primary care doctor Past History - Past Medical History Allergies/Adverse Reactions: Allergies Allergy/AdvReac Type Severity Reaction Status Date / Time No Known Allergies Allergy Verified 08/30/19 04:27 Home Medications: Ambulatory Orders NK [No Known Home Medication] 08/30/19 Anemia: No Asthma: No Cancer: No Cardiac Disorders: No CVA: No COPD: No CHF: No Dementia: No Diabetes: No GI Disorders: Yes (GERD, HIATAL HERNIA, PANCREATITIS) Disorders: No HTN: No Hypercholesterolemia: No Liver Disease: Yes (ALCOHOLIC FATTY LIVER) Psychiatric Problems: Yes (anxiety) Seizures: No Thyroid Disease: No - Surgical History Orthopedic Surgery: Yes (RIGHT ELBOW SURGERY) - Immunization History Immunization Up to Date: Yes - Psycho Social/Smoking Cessation Hx Smoking Status: Yes Smoking History: Current every day smoker Have you smoked in the past 12 months: Yes Number of Cigarettes Smoked Daily: 20 Cigars Per Day: 15 Information on smoking cessation initiated: Yes 'Breaking Loose' booklet given: 04/23/19 Hx Alcohol Use: Yes (OCCAS) Drug/Substance Use Hx: No Substance Use Type: Alcohol Hx Substance Use Treatment: No *Physical Exam - Vital Signs Last Vital Signs Temp Pulse Resp BP Pulse Ox 97.3 F L 88 18 141/95 100 08/30/19 04:29 08/30/19 04:29 08/30/19 04:29 08/30/19 04:29 08/30/19 04:29 Discharge - Discharge Information Problems reviewed: Yes Clinical Impression/Diagnosis: Anxiety about health Condition: Stable Disposition: HOME - Admission No - Follow up/Referral Referrals: Vishnu Garner MD [Primary Care Provider] - - Patient Discharge Instructions Additional Instructions: Return to the emergency department immediately with ANY new, persistent or worsening symptoms. Continue any medications as previously prescribed by your physician. You should follow up with your primary doctor as soon as possible regarding today's emergency department visit. . Please make sure your doctor reviews the results of your emergency evaluation. Thank you for coming to the Emergency Department today for your care. It was a pleasure to see you today. Please note that your evaluation is INCOMPLETE until you follow-up with your doctor. - Post Discharge Activity
--- NOTE | 2019-08-30 15:58 | EKG ---
Test Reason : Blood Pressure : / mmHG Vent. Rate : 071 BPM Atrial Rate : 071 BPM P-R Int : 164 ms QRS Dur : 116 ms QT Int : 394 ms P-R-T Axes : 059 084 054 degrees QTc Int : 428 ms NORMAL SINUS RHYTHM WITH SINUS ARRHYTHMIA NORMAL ECG WHEN COMPARED WITH ECG OF 10-DEC-2018 10:38, NO SIGNIFICANT CHANGE WAS FOUND Confirmed by ANKIT TRUJILLO MD ([id number]) on 08/30/2019 3:58:26 PM Referred By: MD CARABALLO Confirmed By:ANKIT TRUJILLO MD
== END 2019-08-30 04:50 | disposition home or self-care (01) ==
LOC: FER 04:25
DX: F06.4 Anxiety disorder due to known physiological condition (principal); F17.210 Nicotine dependence, cigarettes, uncomplicated; K76.0 Fatty (change of) liver, not elsewhere classified; K21.9 Gastro-esophageal reflux disease without esophagitis; K46.9 Unspecified abdominal hernia without obstruction or gangrene; K85.90 Acute pancreatitis without necrosis or infection, unspecified
CPT/HCPCS: 93005; 99281-25

== ENCOUNTER 2020-11-23 04:31 | Emergency (ER) | payer BC ==
[2020-11-23 04:39] VITALS: BP 128/98; PULSE 66; TEMP 97.9; BMI 25.0
[2020-11-23] MEDS ORDERED: IBUPROFEN 600 MG TABLET (FP) PO ONE (05:08)
[2020-11-23] MEDS ORDERED: IBUPROFEN 400 MG TABLET (FP) PO ONE (05:08)
== END 2020-11-23 06:52 | disposition home or self-care (01) ==
LOC: FER 04:31
DX: R07.89 Other chest pain (principal)
CPT/HCPCS: 36415; 84484; 93005; 99284-25

== ENCOUNTER 2023-03-31 21:07 | Emergency (ER) | payer BC, OTHER ==
[2023-03-31 21:20] VITALS: BP 146/104; PULSE 84; RESP 16; TEMP 98; BMI 23.6
[2023-03-31] MEDS ORDERED: ACETAMINOPHEN 500 MG TABLET (FP) PO ONE (21:22)
[2023-03-31] MEDS ORDERED: KETOROLAC TROMETHAMINE 30 MG/1 ML VIAL IM ONE (21:22)
[2023-03-31] MEDS ORDERED: KETOROLAC TROMETHAMINE 30 MG/1 ML VIAL ONE (21:39)
[2023-03-31] MEDS ORDERED: ACETAMINOPHEN 500 MG TABLET (FP) ONE (21:39)
== END 2023-03-31 22:48 | disposition home or self-care (01) ==
LOC: FER 21:07
PROC: 3E0233Z Introduction of Anti-inflammatory into Muscle, Percutaneous Approach (ICD-10-PCS; principal; 2023-03-31)
DX: J32.9 Chronic sinusitis, unspecified (principal)
CPT/HCPCS: 70450-TC; 96372; 99284-25

== ENCOUNTER 2023-08-27 21:37 | Emergency (ER) | payer OTHER ==
[2023-08-27 21:44] VITALS: BP 110/75; PULSE 83; RESP 16; TEMP 98.5; BMI 25.0
[2023-08-27] MEDS ORDERED: NAPROXEN 500 MG TABLET ONE (22:20)
[2023-08-27] MEDS ORDERED: NAPROXEN 500 MG TABLET PO ONE (22:24)
[2023-08-27 22:45] LABS: HEMATOCRIT 41.8 % (35.4-49); HEMOGLOBIN 14.4 G/dL (11.7-16.9); MCH 32.6 pg (25.7-33.7); MCHC 34.5 g/dl (32.0-35.9); MEAN CELL VOLUME 94.6 fl (80-96); MEAN PLT VOLUME 8.6 fl (7.5-11.1); PLATELET COUNT 182.4 10^3/uL (134-434); RBC 4.42 10^6/uL (4.00-5.60); RDW 12.9 % (11.9-15.9); WHITE BLOOD COUNT 8.6 10^3/uL (4.0-10.8)
[2023-08-28 00:41] LABS: POTASSIUM 3.7 mmol/L (3.5-5.1)
[2023-08-28 00:44] LABS: CALCIUM 8.8 mg/dL (8.5-10.1)
[2023-08-28 00:45] LABS: BLOOD UREA NITROGEN 19.2 mg/dL (7-18)
[2023-08-28 00:48] LABS: CREATININE 1.2 mg/dL (0.55-1.3)
[2023-08-28 00:49] LABS: BILIRUBIN,TOTAL 0.3 mg/dL (0.2-1); TOT PROT 7.6 g/dl (6.4-8.2)
[2023-08-28 01:27] LABS: CRYSTALS,SYNOVIAL FLUID NEGATIVE
[2023-08-28 04:30] LABS: BF WBC & OTHER NUCLEATED CELLS 5030 /mm3
[2023-08-28] MEDS ORDERED: SULFAMETHOXAZOLE/TRIMETHOPRIM 800MG/160MG D.S. TABLET ONE (05:00)
[2023-08-28] MEDS ORDERED: SULFAMETHOXAZOLE/TRIMETHOPRIM 800MG/160MG D.S. TABLET PO STA (05:02)
[2023-08-28 05:52] LABS: BODY FLUID MONOCYTE 13 %
== END 2023-08-28 05:06 | disposition home or self-care (01) ==
LOC: FER 21:37
PROC: 0H9EXZZ Drainage of Left Lower Arm Skin, External Approach (ICD-10-PCS; principal; 2023-08-27)
DX: M25.522 Pain in left elbow (principal); M70.22 Olecranon bursitis, left elbow; R22.32 Localized swelling, mass and lump, left upper limb
CPT/HCPCS: 36415; 73070-TC-LT-FY; 80053; 85027; 87070; 87075; 87186; 87205; 89060; 99284-25